=== PATIENT | female | born 1950 | race Caucasian/White ===

== ENCOUNTER 2020-01-22 20:23 | Inpatient (IN) | payer MEDICARE ==
[2020-01-22] MEDS ORDERED: LORazepam 2 MG/ML INJ IV STA ×2 (20:35→22:53)
[2020-01-22] MEDS ORDERED: SODIUM CHLORIDE 0.9% 500 ML 500 ML IV STA (20:35)
[2020-01-22] MEDS ORDERED: methylPREDNISolone SOD SUCCI 125 MG/2 ML VIAL IV STA (20:35)
[2020-01-22] MEDS ORDERED: IPRATROPIUM-ALBUTEROL 3 ML NEB INHALATION STA (20:35)
[2020-01-22] MEDS ORDERED: MAGNESIUM SULFATE-D5W PMX 1 GM in DEXTROSE/WATER 1 100ML.BAG IVPB STA (20:35)
[2020-01-22] MEDS ORDERED: DILTIAZEM DRIP BOLUS FROM BAG 1 MG SOLN IV ONE (20:41)
[2020-01-22 20:50] LABS: Basophils % (A) 0 %; Eosinophils # (A) 0.2 k/uL (0-0.7); Eosinophils % (A) 1 %; HCT 39.8 % (34.0-46.0); HGB 12.3 gm/dL (11.4-16.0); Hypochromasia Slight; Lymphocytes # (A) 1.6 k/uL (1.0-4.8); Lymphocytes % (A) 8 %; MCH 29.4 pg (25.0-35.0); MCHC 30.9 g/dL (31.0-37.0); MCV 95.2 fL (80.0-100.0); Mean Platelet Volume 9.4; Monocytes # (A) 1.2 k/uL (0-1.0); Monocytes % (A) 6 %; Neutrophils # (A) 16.2 k/uL (1.3-7.7); Neutrophils % (A) 84 %; Platelet Count 151 k/uL (150-450); RBC 4.18 m/uL (3.80-5.40); RDW 13.7 % (11.5-15.5); WBC 19.4 k/uL (3.8-10.6)
[2020-01-22 20:51] LABS: VBG PH 7.25 (7.31-7.41)
[2020-01-22] MEDS: DILTIAZEM 125 MG in SODIUM CHLORIDE 0.9% 100 ML IV SCH (20:58)
[2020-01-22 21:07] LABS: Calcium 8.8 mg/dL (8.4-10.2); Potassium 3.6 mmol/L (3.5-5.1); Total Bilirubin 0.6 mg/dL (0.2-1.3); Total Protein 5.9 g/dL (6.3-8.2)
[2020-01-22 21:12] LABS: INR 0.9 (<1.2); Partial Thromboplastin Time 23.5 sec (22.0-30.0); Prothrombin Time 9.8 sec (9.0-12.0)
[2020-01-22 21:18] LABS: D-Dimer 3.38 mg/L FEU (<0.60)
--- NOTE | 2020-01-22 21:36 | XR ---
EXAMINATION TYPE: XR chest 1V portable DATE OF EXAM: 01/22/2020 COMPARISON: 07/19/2011 HISTORY: Short of breath TECHNIQUE: FINDINGS: there is blunting right costophrenic angle. There is patchy infiltrate in the right lower lung extend ing from the right pulmonary hilum. The left lung is clear. There are chest leads. IMPRESSION: Pleural fluid and right pulmonary infiltrate appear new compared to old exam. No heart fa ilure. Follow-up recommended.
[2020-01-22] MEDS ORDERED: AZITHROMYCIN 500 MG in SODIUM CHLORIDE 0.9% 250 ML IVPB STA (21:40)
--- NOTE | 2020-01-22 21:43 | ED ---
SOB HPI - General Chief Complaint: Shortness of Breath Stated Complaint: SOB Time Seen by Provider: 01/22/20 20:23 Source: patient Mode of arrival: wheelchair Limitations: no limitations - History of Present Illness Initial Comments: Patient is a 69-year-old female with past medical history of COPD who presents to the emergency department with reported shortness of breath. She states over the past several weeks that she's gotten more progressively short of breath. She did visit her primary care office on Friday and was given a dose of steroids. Patient was then back in office on with bilateral lower extremity swelling. She was started on Lasix and an echo was ordered for Friday. Patient reports that the shortness of breath continued and got worse last night. She admits to history of COPD and has been using her inhalers at home however has never been hospitalized for breathing. Patient denies a history of congestive heart failure. Does state that she's had a history of irregular heart rhythms however unsure what the rhythm was does not take any anticoagulation. Denies history of PR. No history of DVT or PE. No calf pain. No recent travel. Patient denies any chest pain. Admits palpitations. No fevers or chills. Admits to nonproductive cough but no hemoptysis. No abdominal pain. No changes in her bowel or bladder habits. No other alleviating, precipitating or modifying factors - Related Data Home Medications Medication Instructions Recorded Confirmed Albuterol Sulfate [Ventolin HFA] 2 puff INHALATION RT-QID PRN 01/22/20 01/22/20 Alendronate Sodium [Fosamax] 70 mg PO LOYOLA 01/22/20 01/22/20 Ascorbic Acid [Vitamin C] 1,000 mg PO DAILY 01/22/20 01/22/20 Aspirin 325 mg PO HS 01/22/20 01/22/20 Atorvastatin Calcium [Lipitor] 80 mg PO HS 01/22/20 01/22/20 Celecoxib [CeleBREX] 200 mg PO DAILY 01/22/20 01/22/20 Famotidine 20 mg PO BID PRN 01/22/20 01/22/20 Fluticasone Nasal [place] [Flonase 1 spray EA NOSTRIL DAILY PRN 01/22/20 01/22/20 Nasal [place]] Fluticasone/Vilanterol [Breo 1 inhalation INHALATION RT-HS 01/22/20 01/22/20 Ellipta 200-25 Mcg INH] Furosemide [Lasix] 20 mg PO DAILY 01/22/20 01/22/20 Ibuprofen 800 mg PO BID PRN 01/22/20 01/22/20 Loperamide [Imodium] 2 mg PO QID PRN 01/22/20 01/22/20 Potassium Gluconate 99 mg PO HS 01/22/20 01/22/20 Umeclidinium [place] [Incruse 1 puff INHALATION RT-DAILY 01/22/20 01/22/20 Ellipta] amLODIPine [Norvasc] 10 mg PO DAILY 01/22/20 01/22/20 lisinopriL 40 mg PO DAILY 01/22/20 01/22/20 Allergies Allergy/AdvReac Type Severity Reaction Status Date / Time prednisone Allergy Rash/Hives Verified 01/22/20 21:55 Review of Systems ROS Statement: Those systems with pertinent positive or pertinent negative responses have been documented in the HPI. ROS Other: All systems not noted in ROS Statement are negative. Past Medical History Past Medical History: Atrial Fibrillation, COPD, Hypertension General Exam Limitations: no limitations General appearance: alert, in distress Head exam: Present: atraumatic, normocephalic Eye exam: Present: normal appearance ENT exam: Present: normal exam, mucous membranes moist Neck exam: Present: normal inspection. Absent: tenderness, meningismus, lymphadenopathy Respiratory exam: Present: respiratory distress, wheezes, accessory muscle use, decreased breath sounds, other (tachypnia. ) Cardiovascular Exam: Present: tachycardia, irregular rhythm GI/Abdominal exam: Present: soft, normal bowel sounds. Absent: distended, tenderness, guarding, rebound, rigid Extremities exam: Present: pedal edema (3+ pedal edema bilateral lower extre mities) Neurological exam: Present: alert, oriented X3 Psychiatric exam: Present: anxious Skin exam: Present: warm, dry, intact, normal color. Absent: rash Course Vital Signs 01/22/20 01/22/20 01/22/20 20:27 20:59 21:01 Temperature 98.2 F Pulse Rate 203 H 170 H 170 H Respiratory 42 H 34 H 38 H Rate Blood Pressure 110/92 119/76 94/84 O2 Sat by Pulse 97 97 98 Oximetry 01/22/20 01/22/20 01/22/20 21:04 21:10 21:12 Temperature Pulse Rate 184 H 174 H 168 H Respiratory 38 H 34 H 33 H Rate Blood Pressure 109/87 109/87 109/87 O2 Sat by Pulse 98 98 96 Oximetry 01/22/20 01/22/20 01/22/20 21:23 21:49 21:51 Temperature Pulse Rate 163 H 165 H 165 H Respiratory 36 H 56 H 36 H Rate Blood Pressure 107/67 114/78 O2 Sat by Pulse 98 98 Oximetry 01/22/20 01/22/20 01/22/20 22:00 22:17 22:29 Temperature 98.3 F Pulse Rate 176 H 161 H 149 H Respiratory 37 H 34 H 34 H Rate Blood Pressure 106/84 101/60 134/50 O2 Sat by Pulse 97 98 98 Oximetry 01/22/20 01/22/20 01/22/20 22:30 22:46 23:00 Temperature Pulse Rate 176 H 170 H 161 H Respiratory 73 H 34 H 32 H Rate Blood Pressure 101/60 102/73 102/73 O2 Sat by Pulse 99 97 100 Oximetry 01/22/20 01/22/20 23:32 23:52 Temperature Pulse Rate 144 H Respiratory 34 H Rate Blood Pressure 124/71 O2 Sat by Pulse 96 93 L Oximetry - Reevaluation(s) Reevaluation #1: Discussed case with Dr. George who accepted admission and the ICU 01/22/20 23:34 Reevaluation #2: 01/22/20 23:[address] Vivar who agreed to an esmolol gtt Reevaluation #3: Spoke with Dr. Noel 01/22/20 23:56 Medical Decision Making - Medical Decision Making Upon arrival the patient is promptly placed in the trauma bay 2. A thorough history and physical exam was performed. Patient is extremely tachypneic and therefore respiratory is called and placed the patient on BiPAP. She is hooked up to continuous pulse ox and cardiac monitoring. Patient is tachycardic. 12- lead EKG was performed which demonstrates that the patient is in A. fib with a rate up to 220. Peripheral IV was established. Laboratory studies were conducted. The patient was given a DuoNeb breathing treatment, 1 g of magnesium. Patient is initiated on a Cardizem drip. She is given 10 mg bolus followed by 5 mg per hour. Laboratory studies are remarkable for leukocytosis o f 19.4. D-dimer elevated at 3.38. Creatinine elevated at 1.3. BNP 6030. TSH undetectable with free T4 of 5.09. Chest x-ray does demonstrate pleural fluid and right posterior infiltrate. Because of his blood cultures obtained and the patient was started on Rocephin and azithromycin. Because of the patient's elevated d-dimer she is sent over for CT of her chest which demonstrates a loculated right pleural effusion, patchy airspace pneumonia right lower lobe, mild right bronchial adenopathy. No evidence of pulmonary embolus and. Because the patient's pitting edema I did order lower trauma Doppler's which are positive for DVT in the right lower extremity from proximal femoral vein to pr oximal calf veins. Patient was started on heparin drip at low intensity for afib which was titrated to high intensity because of the newly found DVT. Patient is reevaluated and appears resting comfortably on the BiPAP. I did titrate up her Cardizem to 10 mg and then to 15 mg. Patient continues to have a persistent heart rate in the 140s. Because of the persistent tachycardia did consult cardiology, environmental field team member Dr. Mo and Dr. Noel. Patient will be placed on an esmolol drip in addition to her Cardizem drip. PTU was ordered. Patient wanted to take the BiPAP off therefore we did do a trial. Patient maintained her oxygen saturations however is tachypnic. She was given 1 mg of Ativan and placed back on bipap. Patient understood this. Patient tested for covid and awaiting results. Patient was then transferred to the ICU in critical condition - Lab Data Result diagrams: 01/24/20 05:20 01/24/20 05:20 Lab Results 01/22/20 01/22/20 01/22/20 Range/Units 20:40 20:40 20:40 WBC 19.4 H (3.8-10.6) k/uL RBC 4.18 (3.80-5.40) m/uL Hgb 12.3 (11.4-16.0) gm/dL Hct 39.8 (34.0-46.0) % MCV 95.2 (80.0-100.0) fL MCH 29.4 (25.0-35.0) pg MCHC 30.9 L (31.0-37.0) g/dL RDW 13.7 (11.5-15.5) % Plt Count 151 (150-450) k/uL Neutrophils % 84 % Lymphocytes % 8 % Monocytes % 6 % Eosinophils % 1 % Basophils % 0 % Neutrophils # 16.2 H (1.3-7.7) k/uL Lymphocytes # 1.6 (1.0-4.8) k/uL Monocytes # 1.2 H (0-1.0) k/uL Eosinophils # 0.2 (0-0.7) k/uL Basophils # 0.0 (0-0.2) k/uL Hypochromasia Slight PT 9.8 (9.0-12.0) sec INR 0.9 (<1.2) APTT 23.5 (22.0-30.0) sec D-Dimer 3.38 H (<0.60) mg/L FEU VBG pH (7.31-7.41) VBG pCO2 (37-51) mmHg VBG HCO3 (24-28) mmol/L Sodium 137 (137-145) mmol/L Potassium 3.6 (3.5-5.1) mmol/L Chloride 107 (98-107) mmol/L Carbon Dioxide 17 L (22-30) mmol/L Anion Gap 13 mmol/L BUN 39 H (7-17) mg/dL Creatinine 1.30 H (0.52-1.04) mg/dL Est GFR (CKD-EPI)AfAm 49 (>60 ml/min/1.73 sqM) Est GFR (CKD-EPI)NonAf 42 (>60 ml/min/1.73 sqM) Glucose 173 H (74-99) mg/dL Plasma Lactic Acid Ford (0.7-2.0) mmol/L Calcium 8.8 (8.4-10.2) mg/dL Magnesium 2.0 (1.6-2.3) mg/dL Total Bilirubin 0.6 (0.2-1.3) mg/dL AST 93 H (14-36) U/L ALT 69 H (4-34) U/L Alkaline Phosphatase 257 H (38-126) U/L Troponin I (0.000-0.034) ng/mL NT-Pro-B Natriuret Pep pg/mL Total Protein 5.9 L (6.3-8.2) g/dL Albumin 3.0 L (3.5-5.0) g/dL TSH (0.465-4.680) mIU/L Free T4 (0.78-2.19) ng/dL 01/22/20 01/22/20 01/22/20 Range/Units 20:40 20:40 20:40 WBC (3.8-10.6) k/uL RBC (3.80-5.40) m/uL Hgb (11.4-16.0) gm/dL Hct (34.0-46.0) % MCV (80.0-100.0) fL MCH (25.0-35.0) pg MCHC (31.0-37.0) g/dL RDW (11.5-15.5) % Plt Count (150-450) k/uL Neutrophils % % Lymphocytes % % Monocytes % % Eosinophils % % Basophils % % Neutrophils # (1.3-7.7) k/uL Lymphocytes # (1.0-4.8) k/uL Monocytes # (0-1.0) k/uL Eosinophils # (0-0.7) k/uL Basophils # (0-0.2) k/uL Hypochromasia PT (9.0-12.0) sec INR (<1.2) APTT (22.0-30.0) sec D-Dimer (<0.60) mg/L FEU VBG pH (7.31-7.41) VBG pCO2 (37-51) mmHg VBG HCO3 (24-28) mmol/L Sodium (137-145) mmol/L Potassium (3.5-5.1) mmol/L Chloride (98-107) mmol/L Carbon Dioxide (22-30) mmol/L Anion Gap mmol/L BUN (7-17) mg/dL Creatinine (0.52-1.04) mg/dL Est GFR (CKD-EPI)AfAm (>60 ml/min/1.73 sqM) Est GFR (CKD-EPI)NonAf (>60 ml/min/1.73 sqM) Glucose (74-99) mg/dL Plasma Lactic Acid Ford 2.0 (0.7-2.0) mmol/L Calcium (8.4-10.2) mg/dL Magnesium (1.6-2.3) mg/dL Total Bilirubin (0.2-1.3) mg/dL AST (14-36) U/L ALT (4-34) U/L Alkaline Phosphatase (38-126) U/L Troponin I 0.018 (0.000-0.034) ng/mL NT-Pro-B Natriuret Pep 6030 pg/mL Total Protein (6.3-8.2) g/dL Albumin (3.5-5.0) g/dL TSH (0.465-4.680) mIU/L Free T4 (0.78-2.19) ng/dL 01/22/20 01/22/20 Range/Units 20:40 20:42 WBC (3.8-10.6) k/uL RBC (3.80-5.40) m/uL Hgb (11.4-16.0) gm/dL Hct (34.0-46.0) % MCV (80.0-100.0) fL MCH (25.0-35.0) pg MCHC (31.0-37.0) g/dL RDW (11.5-15.5) % Plt Count (150-450) k/uL Neutrophils % % Lymphocytes % % Monocytes % % Eosinophils % % Basophils % % Neutrophils # (1.3-7.7) k/uL Lymphocytes # (1.0-4.8) k/uL Monocytes # (0-1.0) k/uL Eosinophils # (0-0.7) k/uL Basophils # (0-0.2) k/uL Hypochromasia PT (9.0-12.0) sec INR (<1.2) APTT (22.0-30.0) sec D-Dimer (<0.60) mg/L FEU VBG pH 7.25 L (7.31-7.41) VBG pCO2 41 (37-51) mmHg VBG HCO3 17 L (24-28) mmol/L Sodium (137-145) mmol/L Potassium (3.5-5.1) mmol/L Chloride (98-107) mmol/L Carbon Dioxide (22-30) mmol/L Anion Gap mmol/L BUN (7-17) mg/dL Creatinine (0.52-1.04) mg/dL Est GFR (CKD-EPI)AfAm (>60 ml/min/1.73 sqM) Est GFR (CKD-EPI)NonAf (>60 ml/min/1.73 sqM) Glucose (74-99) mg/dL Plasma Lactic Acid Ford (0.7-2.0) mmol/L Calcium (8.4-10.2) mg/dL Magnesium (1.6-2.3) mg/dL Total Bilirubin (0.2-1.3) mg/dL AST (14-36) U/L ALT (4-34) U/L Alkaline Phosphatase (38-126) U/L Troponin I (0.000-0.034) ng/mL NT-Pro-B Natriuret Pep pg/mL Total Protein (6.3-8.2) g/dL Albumin (3.5-5.0) g/dL TSH <0.015 L (0.465-4.680) mIU/L Free T4 5.09 H (0.78-2.19) ng/dL - EKG Data EKG Comments: EKG demonstrates age or fibrillation with a rapid ventricular response. Rate of 194. QRS 86. QTC of 46. No acute ST segment elevations or depressions. Critical Care Time Critical Care Time: 50 minutes for initiation of bipap, attempted weaning with re-initiation of bipap. Initiation and titration of patients cardizem gtt for new onset afib. Initiation of esmolol gtt for suspected thyroid storm with afib rvr. Initiation and titration of heparin gtt for afib and lower extremity dvt. Disposition Clinical Impression: Atrial fibrillation with RVR, CAP (community acquired pneumonia), BiPAP (biphasic positive airway pressure) dependence, Lower leg DVT (deep venous thromboembolism), acute, Elevated serum free T4 level, Hypoxia, Leukocytosis Disposition: ADMITTED IP TO THIS HOSP Condition: Critical Is patient prescribed a controlled substance at d/c from ED?: No Decision to Admit Reason: Admit from EC Decision Date: 01/22/20 Decision Time: 22:12
--- NOTE | 2020-01-22 22:01 | CT ---
EXAMINATION TYPE: CT chest angio for PE DATE OF EXAM: 01/22/2020 COMPARISON: HISTORY: SOB CT DLP: 388.5 mGycm Automated exposure control for dose reduction was used. CONTRAST: Performed with IV Contrast, patient injected with 80 mL of Isovue 370. There are 3-D post processed images. There is a moderate right pleural effusion. Heart is slightly enlarged. There is no pericardial effus ion. There is patchy airspace consolidation in the posterior right lower lobe. There is some fluid in the right major fissure. I see no definite filling defect in the pulmonary arteries. There is no mediastinal adenopathy. Thora cic aorta is atheromatous. There is no aneurysm or dissection. Ascending aorta measures 3.4 cm. The l eft lung is clear of consolidation. There is a 7 mm nodular density in the lingula left upper lobe. T here are some right bronchial lymph nodes that measure up to 1.5 cm. There is some compression deformity of T9 and T8 vertebra up to 60%. IMPRESSION: There is some loculated right pleural effusion. Patchy airspace pneumonia right lower lobe. Mild righ t bronchial adenopathy probably due to inflammatory process. No evidence of pulmonary embolism. Cardiomegaly. Atherosclerotic vascular disease.
[2020-01-22] MEDS ORDERED: SODIUM CHLORIDE 0.9% 1,000 ML IV ONE (22:07)
--- NOTE | 2020-01-22 22:19 | US ---
EXAMINATION TYPE: US venous doppler duplex LE DATE OF EXAM: 01/22/2020 8:41 PM COMPARISON: NONE CLINICAL HISTORY: swelling. SOB SIDE PERFORMED: Bilateral TECHNIQUE: The lower extremity deep venous system is examined utilizing real time linear array sonog eliecer with graded compression, doppler sonography and color-flow sonography. VESSELS IMAGED: External Iliac Vein (EIV) Common Femoral Vein Deep Femoral Vein Greater Saphenous Vein * Femoral Vein Popliteal Vein Small Saphenous Vein * Proximal Calf Veins (* superficial vessels) Right Leg: Positive for DVT right proximal femoral vein to proximal calf veins Left Leg: Negative for DVT IMPRESSION: There is evidence of acute deep vein thrombosis in the right leg involving the femoral and popliteal vein.
[2020-01-22] MEDS ORDERED: HEPARIN SODIUM,PORCINE 5,000 UNIT/ML 1 ML VIAL IV ONE (22:22)
[2020-01-22] MEDS ORDERED: HEPARIN SODIUM,PORCINE 5,000 UNIT/ML 1 ML VIAL IV PRN (22:22)
[2020-01-22] MEDS ORDERED: HEPARIN SODIUM,PORCINE 10,000 UNIT/ML 1 ML VIAL IV ONE (22:29)
[2020-01-22] MEDS ORDERED: HEPARIN SOD,PORK IN 0.45% NACL 25,000 UNIT in 0.45% NACL 1 250ML.BAG IV SCH (22:30)
[2020-01-22] MEDS: HEPARIN SOD,PORK IN 0.45% NACL 25,000 UNIT in 0.45% NACL 1 250ML.BAG IV SCH (22:43)
[2020-01-22] MEDS ORDERED: IPRATROPIUM-ALBUTEROL 3 ML NEB INHALATION PRN (22:57)
[2020-01-22] MEDS ORDERED: NALOXONE 0.4 MG/ML 1 ML VIAL IV PRN (22:57)
[2020-01-22 23:05] LABS: T4, Free (Free Thyroxine) 5.09 ng/dL (0.78-2.19)
[2020-01-22] MEDS ORDERED: propylthiouraciL 50 MG TAB PO STA (23:38)
[2020-01-22 23:55] LABS: Glucose,Whole Blood 169 mg/dL (75-99)
[2020-01-23] MEDS ORDERED: IPRATROPIUM-ALBUTEROL 3 ML NEB INHALATION PRN (00:23)
[2020-01-23] MEDS ORDERED: FLUTICASONE 50MCG/SPRAY NASAL 16GM EA NOSTRIL PRN (00:26)
[2020-01-23] MEDS ORDERED: LOPERAMIDE 2 MG CAP PO PRN (00:26)
[2020-01-23] MEDS: BUDESONIDE 1 MG/2 ML NEBU INHALATION SCH ×3 (00:30→19:10)
[2020-01-23] MEDS: FORMOTEROL FUMARATE 20 MCG/2 ML NEBU INHALATION SCH ×2 (00:30→07:22)
[2020-01-23] MEDS: ESMOLOL IN SODIUM CHLORIDE PMX 2.5 GM in SALINE 1 250ML.BAG IV SCH ×2 (00:43→11:47)
[2020-01-23] MEDS ORDERED: SODIUM CHLORIDE 0.9% 1,000 ML IV SCH (01:00)
[2020-01-23] MEDS ORDERED: propofoL 100 ML IV ONE (01:05)
--- NOTE | 2020-01-23 01:56 | XR ---
EXAMINATION TYPE: XR chest 1V portable DATE OF EXAM: 01/23/2020 COMPARISON: Yesterday HISTORY: Short of breath TECHNIQUE: Single view FINDINGS: Endotracheal tube is 10 mm from the sonya. There is patchy airspace consolidation in the r ight lower lobe. There is bilateral pleural effusions larger on the right side. There is no gross hea rt failure. Thoracic aorta is atheromatous. There is nasogastric tube in the stomach. IMPRESSION: Endotracheal tube is low and should BE pulled back 3 cm. There is infiltrate and pleural fluid on the right side that is the same or slightly worse than exam 4 hours ago.
[2020-01-23 03:36] LABS: Glucose,Whole Blood 167 mg/dL (75-99)
[2020-01-23] MEDS: IPRATROPIUM-ALBUTEROL 3 ML NEB INHALATION SCH ×5 (03:50→19:10)
[2020-01-23] MEDS ORDERED: propylthiouraciL 50 MG TAB PO SCH (04:00)
[2020-01-23] MEDS: DILTIAZEM 125 MG in SODIUM CHLORIDE 0.9% 100 ML IV SCH ×2 (04:58→18:36)
[2020-01-23 05:28] LABS: Glucose,Whole Blood 167 mg/dL (75-99)
[2020-01-23 05:34] LABS: HCT 40.4 % (34.0-46.0); HGB 11.8 gm/dL (11.4-16.0); Hypochromasia Marked; MCH 30.3 pg (25.0-35.0); MCHC 29.3 g/dL (31.0-37.0); Macrocytosis Slight; Mean Platelet Volume 9.3; Platelet Count 146 k/uL (150-450); RDW 13.3 % (11.5-15.5); WBC 19.2 k/uL (3.8-10.6)
[2020-01-23 05:43] LABS: Albumin 2.6 g/dL (3.5-5.0); Calcium 7.4 mg/dL (8.4-10.2); Potassium 4.6 mmol/L (3.5-5.1); Total Bilirubin 0.7 mg/dL (0.2-1.3); Total Protein 5.5 g/dL (6.3-8.2)
[2020-01-23 05:58] LABS: C Reactive Protein 251.6 mg/L (<10.0)
[2020-01-23 06:02] LABS: INR 1.1 (<1.2); Prothrombin Time 11.5 sec (9.0-12.0)
[2020-01-23 06:05] LABS: Band Neutrophils % 2 %; Crenated RBC Present; Lymphocytes # (M) 0.77 k/uL (1.0-4.8); Monocytes # (M) 0.96 k/uL (0-1.0); Neutrophils % (M) 89 %; Nucleated Red Blood Cells 0 /100 WBC (0-0); Total Cells Counted 100
[2020-01-23 06:08] LABS: Partial Thromboplastin Time >200.0 sec (22.0-30.0)
--- NOTE | 2020-01-23 06:50 | XR ---
EXAMINATION TYPE: XR chest 1V DATE OF EXAM: 01/23/2020 COMPARISON: Today HISTORY: Short of breath TECHNIQUE: FINDINGS: There is blunting of the costophrenic angles. There is endotracheal tube 1.5 cm from the ca luh. There is nasogastric there is no gross heart failure. There is bilateral lower lobe pulmonary i nfiltrates and atelectasis. IMPRESSION: Bilateral pleural effusions with lower lobe pneumonia and atelectasis unchanged or slight ly worse compared to exam 5 hours ago. No obvious heart failure.
[2020-01-23] MEDS: INSULIN ASPART (NovoLOG) 100 UNIT/ML VIAL SQ SCH ×3 (06:52→20:22)
[2020-01-23] MEDS ORDERED: SODIUM CHLORIDE 0.9% 500 ML 500 ML IV ONE ×2 (07:00→10:27)
[2020-01-23] MEDS ORDERED: FUROSEMIDE 10 MG/ML 4 ML VIAL IV STA (07:07)
[2020-01-23 07:29] LABS: ABG Base Excess -19.1 mmol/L; ABG HCO3 14 mmol/L (21-25); ABG PO2 129 mmHg (83-108); ABG TCO2 17 mmol/L (19-24); Allen Test Performed? Yes
[2020-01-23 07:31] LABS: MCV 103.5 fL (80.0-100.0)
[2020-01-23 07:33] LABS: ABG PCO2 77 mmHg (35-45); ABG PH 6.87 (7.35-7.45)
[2020-01-23] MEDS ORDERED: SODIUM BICARB 8.4% 50 ML SYR (1 MEQ/ML) IV STA ×3 (07:56→22:35)
--- NOTE | 2020-01-23 08:04 | HP ---
HISTORY AND PHYSICAL I am covering for Dr. Arreola. CHIEF COMPLAINT: Shortness of breath. HISTORY OF PRESENT ILLNESS: This 69-year-old woman with a past medical history of atrial fibrillation, COPD, hypertension, being followed by [facility] was having shortness of breath over the past several days. Because of the lack of improvement with outpatient treatment, the patient was taken to [facility] admitted for evaluation and treatment. The patient was extremely short of breath. The patient has to put on a nonrebreather mask to maintain the saturation. The patient also had atrial fibrillation with rate of about more than 200. The patient was given max dose Cardizem drip with no relief. Amiodarone was withheld because of the possibility of hypothyroidism and thyroid storm. The patient also had elevated D-dimer. The patient also had acute DVT of the right proximal femoral vein proximal to calf veins. The patient also had a CT of the chest which showed no evidence of pulmonary embolism, but loculated right pleural effusion as well as patchy airspace disease in the right lower lobe also. Mild right bronchial adenopathy was also noted. The possibility of viral pneumonia and for COVID pneumonia is also being considered. COVID-19 test has been requested. The patient was transferred to [facility] and closely monitored. Because of the nonrebreather mask and the patient is unable to give a coherent history, most of the history is taken with my discussion with staff and discussion with the ER physician and review of chart at this time. PAST MEDICAL HISTORY: History of atrial ablation, COPD, hypertension. HOME MEDICATIONS: 1. Vitamin C 1000 mg daily. 2. Potassium gluconate 99 mg q.h.s. 3. Flonase 1 spray daily p.r.n. 4. Pepcid 20 mg b.i.d. p.r.n. 5. Imodium. 6. Ibuprofen. 7. Lisinopril. 8. Aspirin. 9. Albuterol. 10.Lasix. 11.Celebrex. 12.Breo. 13.Ellipta. 14.Lipitor. 15.Norvasc. 16.Fosamax. ALLERGIES: PREDNISONE. Family history, social history and review of systems could not be taken because of above mentioned reasons. PHYSICAL EXAMINATION: The patient is alert, oriented x2. Pulse is 160, irregular, irregular; blood pressure 100/84, respiration 34, temperature normal, pulse ox 96% on 40% Ventimask. HEENT: Conjunctivae normal. Oral mucosa moist. NECK: No jugular venous distention. No lymph node enlargement. CARDIOVASCULAR: S1, S2, muffled. No S3, no S4, RESPIRATORY: Diminished breath sounds at the bases. A few scattered rhonchi and crackles. ABDOMEN: Soft, nontender. No mass palpable. LEGS: No edema, no swelling. NERVOUS SYSTEM: Higher functions mentioned earlier. Moves all four limbs. No focal motor or sensory deficits. LYMPHATICS: No lymph node in neck or axilla. SKIN: No rash. JOINTS: No active deforming arthropathy. LABS: WBC 19.2, hemoglobin 12.3, D-dimer 3.380. ABG- CBG 7.25. Creatinine is 1.30, glucose 173 and AST is 93, ALT 69, alkaline phosphatase is 257, albumin is 3. TSH less than 0.015, free T4 is 5.09. ASSESSMENT: 1. Chronic obstructive pulmonary disease acute exacerbation with acute right lower lobe pneumonia, possibly gram-negative with acute hypoxic respiratory failure. 2. Change in mental status, acute metabolic encephalopathy secondary to respiratory failure. 3. Possible bilateral interstitial pneumonia and COVID-19 pneumonia. 4. Acute right leg deep venous thrombosis. afib with FVR refractory 5. Elevated D-dimer. 6. Increased WBC. 7. Elevated creatinine with possible acute renal failure. 8. Elevated AST, ALT. 9. Possible hyperthyroidism, new onset. 10.History of atrial fibrillation. 11.History of chronic obstructive pulmonary disease. 12.History of hypertension. 13.FULL CODE. RECOMMENDATIONS AND DISCUSSION: In this 69-year-old woman who presented with multiple complex medical issues, we will monitor the patient closely, continue the current management of the patient and symptomatic treatment. The patient is being closely monitored in the ICU. We will initiate broad-spectrum IV antibiotics. Otherwise, we will recommend cardiology and pulmonology consultations. Esmolol drip is being initiated. COVID-19 test is pending at this time. Otherwise, cultures also requested. Will repeat the labs tomorrow. I would also recommend infectious disease evaluation by Dr. Vasquez also. Overall prognosis extremely guarded. Ensure oxygenation. The heart rate is also slightly improving and also the patient is on Ventimask at this time. Further recommendations to follow. Dr. Arreola will follow the patient on Friday. MMODL / IJN: [id number] / ANTIONE
[2020-01-23] MEDS ORDERED: ROCURONIUM BROMIDE 10 MG/ML 5 ML VIAL IV ONE (08:10)
[2020-01-23] MEDS ORDERED: PROPOFOL 10 MG/ML 20 ML VIAL IV ONE (08:10)
[2020-01-23] MEDS ORDERED: MIDAZOLAM 1 MG/ML 5 ML VIAL ONE (08:10)
[2020-01-23] MEDS ORDERED: PROTAMINE SULFATE 10 MG/ML 5 ML VIAL IV STA (08:12)
[2020-01-23] MEDS: DEXTROSE 5% IN WATER 1,000 ML with SODIUM BICARB (1 MEQ/ML) 150 ML IV SCH (08:36)
--- NOTE | 2020-01-23 08:39 | US ---
EXAMINATION TYPE: US chest DATE OF EXAM: 01/23/2020 COMPARISON: Radiograph same day CLINICAL HISTORY: 61-year-old female Markings for thoracentesis by pulmonary staff. Right pleural eff usion TECHNIQUE: Targeted ultrasound of the posterior bilateral chest FINDINGS: EXAM MEASUREMENTS: Right Pleural Effusion pocket size: 5.7 cm; however, echogenic lung noted within fluid pocket Right skin surface to fluid distance: 2.4 cm Left Pleural Effusion pocket size: no fluid seen Right side was marked for possible thoracentesis outside the dept. Pulmonologists are able to review the images in the patient?s EMR. IMPRESSIONS: 1. Mild to moderate right effusion with marking performed. Note interposed atelectatic lung within th e fluid. 2. No sizable effusion seen on the left.
[2020-01-23 08:55] LABS: ABG Base Excess -12.9 mmol/L; ABG HCO3 17 mmol/L (21-25); ABG Oxygen Saturation 95.1 % (94-97); ABG PCO2 60 mmHg (35-45); ABG PO2 92 mmHg (83-108); ABG TCO2 19 mmol/L (19-24)
[2020-01-23] MEDS ORDERED: NOREPINEPHRINE 4 MG in SODIUM CHLORIDE 0.9% 250 ML IV SCH (09:00)
[2020-01-23] MEDS ORDERED: FUROSEMIDE 20 MG TAB PO SCH (09:00)
[2020-01-23 10:15] LABS: ABG Base Excess -13.1 mmol/L; ABG HCO3 16 mmol/L (21-25); ABG Oxygen Saturation 94.4 % (94-97); ABG PCO2 49 mmHg (35-45); ABG PO2 81 mmHg (83-108); ABG TCO2 18 mmol/L (19-24)
[2020-01-23 10:17] LABS: ABG PH 7.07 (7.35-7.45)
[2020-01-23] MEDS ORDERED: SODIUM BICARB 8.4% 50 ML SYR (1 MEQ/ML) ONE (10:25)
[2020-01-23 10:30] LABS: ABG PH 7.13 (7.35-7.45)
[2020-01-23] MEDS: SODIUM CHLORIDE 0.9% 1,000 ML IV SCH (10:36)
[2020-01-23] MEDS: PANTOPRAZOLE 40 MG/10 ML VIAL IVP SCH (10:37)
[2020-01-23] MEDS: ASCORBIC ACID 500 MG TAB PO SCH (10:37)
[2020-01-23] MEDS: CHLORHEXIDINE GLUCONATE 15 ML CUP MUCOUS MEM SCH ×2 (10:46→20:47)
[2020-01-23] MEDS: methIMAzole 5 MG TAB PO SCH ×3 (10:47→22:52)
--- NOTE | 2020-01-23 10:48 | XR ---
EXAMINATION TYPE: XR chest 1V confirm line [facility] DATE OF EXAM: 01/23/2020 COMPARISON: 01/23/2020, earlier today HISTORY: 69-year-old female verified line placement TECHNIQUE: Single frontal view of the chest is obtained. FINDINGS: Right IJ CVC tip in the inferior right atrium likely near the inferior cavoatrial junction. Heart is mildly enlarged. Continued small to moderate right effusion with extensive patchy right mid and lower lung opacity. Patchy left basilar opacity also noted. The previous blunting of the costophrenic angl e is improved. ET tube has been satisfactorily repositioned now measuring 3.6 cm from the sonya. NG tube courses below the diaphragm. IMPRESSION: 1. Right IJ CVC tip in the inferior right atrium. 2. Continued small to moderate right effusion with prominent patchy right mid and lower lung consolid ation. 3. Some mild patchy left basilar infiltrate. The previous blunting of the left costophrenic angle is improved.
--- NOTE | 2020-01-23 11:11 | CONS ---
CONSULTATION Mrs. Glynn is a 69-year-old female with a history of hypertension, hyperlipidemia, who presented to the emergency room with evidence of progressive dyspnea and evidence of atrial fibrillation with rapid ventricular response. The patient, according to the records, has a history of chronic obstructive lung disease. In the emergency room, she was noted to have atrial fibrillation, was given IV Cardizem and subsequently esmolol. She has converted to sinus mechanism. She was diagnosed with a right DVT and has been on heparin. No other history could be obtained, the patient is intubated and there are no old records. The patient had lab data consistent with severe hyperthyroidism and possible Graves disease. She is hypotensive at this time. has no significant urinary output. She continues to be acidotic with elevated pCO2. Her chest x-ray on presentation revealed an infiltrate in the right lobe with worsening at this moment. MEDICATION: His medications prior to admission included lisinopril 40 mg daily, aspirin, furosemide 20 mg daily, Lipitor 80 mg daily, amlodipine 10 mg daily. REVIEW OF SYSTEMS: Could not be obtained. PHYSICAL EXAMINATION: 69-year-old female, intubated and nonresponsive, sedated. Blood pressure running in the 90s to 100 with a heart rate in the 90s at this time. She is in sinus mechanism. She was very tachycardiac on presentation. HEAD: Normocephalic. Eyes sclerae nonicteric suggestion of Grave's disease. NECK no bruit. LUNGS: Clear to auscultation anteriorly. HEART: Regular rate and rhythm S1, S2. No S3 with systolic ejection murmur 2/6 at the base. No diastolic murmur. ABDOMEN: Soft, positive bowel sounds. No organomegaly. EXTREMITIES +1 to 2 edema on the right side, +1 on the left side. LAB DATA: Revealed on presentation, white blood cell of 19.4. Her D-dimer was 3.38. BUN and creatinine 39 and 1.30. Her initial troponin 0.018. Her NT proBNP 6040. TSH was less than 0.015 and free T4 of 5.09. Her initial AST is 93 and 69. This morning her AST is 523, ALT 264. Her BUN and creatinine 39 and 1.72. PA 6.87, pCO2 of 77, PO2 of 129, hemoglobin of 11.8, white blood cell of 9.2. Her EKG on presentation revealed atrial fibrillation with rapid ventricular response, rare PACs and nonspecific ST wave changes. Duplex scan revealed a DVT in the right proximal vein to proximal vein. CT angiogram of the chest revealed loculated right pleural effusion with pneumonia in the right lower lobe. No evidence of pulmonary embolism. IMPRESSION: 1. Respiratory failure with evidence of pneumonia. 2. Right femoral deep vein thrombosis. 3. Atrial fibrillation, back in sinus mechanism. 4. Renal failure, worsening. 5. Shock liver. 6. Hypothyroidism with possible Grave's disease. 7. History of hypertension. 8. History of hyperlipidemia. RECOMMENDATION: From the cardiac standpoint, I will obtain an echocardiogram with Doppler. The patient is on IV heparin. I will stop the IV Cardizem at this time since she is in sinus mechanism. Her blood pressure is on the low side. She is off her IV esmolol. She will be started on treatment for her hypothyroidism. She will be evaluated by Dr. Mo regarding her lung status. The prognosis is poor. Thank you for this consult. Will follow with you. MIOL / IJN: [id number] /
[2020-01-23 11:32] LABS: Glucose,Whole Blood 121 mg/dL (75-99)
--- NOTE | 2020-01-23 11:56 | P.CNPUL ---
History of Present Illness Consult date: 01/23/20 Reason for consult: other (Acute hypoxic respiratory failure, acute thyroid storm.) Chief complaint: Shortness of breath and palpitations. History of present illness: This is a 69-year-old female, known history of hypertension, dyslipidemia, possible COPD, patient presented to the ER last night with a few days' history of progressive dyspnea. Upon evaluation in the ER, patient was noted to be in atrial fibrillation with RVR. Further workup included workup for pulmonary embolism, patient was found to have right lower lobe pneumonia and possibly a right-sided pleural effusion no evidence of pulmonary embolism. However considering her d-dimer was elevated patient had ultrasound of the leg and she was found to have right-sided DVT. Patient was also found to have significantly elevated T4 and non-detectable TSH consistent with hyperthyroidism. Patient was placed by the ER physician on Cardizem and esmolo. She was also placed on heparin for atrial fibrillation and RVR. And she was transferred to the ICU. However as soon as the patient arrived to the ICU, I was called by the nurse that the patient is extremely tachypneic, and her respiratory rate was in the 40s. Then I recommended immediate intubation of the patient. And she was placed on ventilatory support. ABG this morning showed a pO2 of 129 pCO2 of 77 pH of 6.87. Her ventilator settings were changed, patient received sodium bicarb and she also received a sodium bicarb drip. Follow-up ABG this morning while I was rounding on the patient showed a pO2 of 81 pCO2 of 49 pH of 7.13. Patient remained on sodium bicarb drip, and her ventilator settings were also adjusted to improve her hypercapnia. Patient converted to sinus rhythm last night after intubation. And her blood pressure was low hence she was placed on norepinephrine. She is now on norepinephrine at 0.05 mcg/kg/m. She is on assist control rate of 28 tidal volume is 470 FiO2 is 50% and PEEP of 5. Patient is on a bicarb drip, and earlier today she developed nasal bleeding with PTT was over 200 hence I recommended holding the heparin, I was about to give the patient protamine sulfate, but her heparin hold seem to take care of the epistaxis. Did not end up giving protamine sulfate. After evaluating the patient in the ICU, I recommended placement of a right IJ central line which was done shortly after I saw the patient, and The patient on norepinephrine. I also recommended an arterial line/right radial arterial line was placed. And I have noted that the patient developed significant elevation of her liver enzymes and renal functioning, hence I recommended switching propylthiouracil to Tapazole at 5 mg via orogastric tube 3 times a day. Fluid boluses were given. And the patient was placed empirically on antibiotics for presumptive right lower lobe community-acquired pneumonia, with small parapneumonic effusion, and possible sepsis. Clearly the patient presented with hyperthyroidism, atrial fibrillation with RVR, right lower lobe pneumonia and right-sided parapneumonic effusion, shock liver, and acute kidney injury with hypotension possibly secondary to sepsis and septic shock. Review of Systems ROS unobtainable: due to endotracheal tube Past Medical History Past Medical History: Atrial Fibrillation, COPD, Hypertension History of Any Multi-Drug Resistant Organisms: None Reported Past Surgical History: Unable to Obtain Past Anesthesia/Blood Transfusion Reactions: Unable to Obtain Past Psychological History: No Psychological Hx Reported Smoking Status: Former smoker Past Drug Use History: None Reported Medications and Allergies Home Medications Medication Instructions Recorded Confirmed Type Albuterol Sulfate [Ventolin HFA] 2 puff INHALATION RT-QID PRN 01/22/20 01/22/20 History Alendronate Sodium [Fosamax] 70 mg PO LOYOLA 01/22/20 01/22/20 History Ascorbic Acid [Vitamin C] 1,000 mg PO DAILY 01/22/20 01/22/20 History Aspirin 325 mg PO HS 01/22/20 01/22/20 History Atorvastatin Calcium [Lipitor] 80 mg PO HS 01/22/20 01/22/20 History Celecoxib [CeleBREX] 200 mg PO DAILY 01/22/20 01/22/20 History Famotidine 20 mg PO BID PRN 01/22/20 01/22/20 History Fluticasone Nasal [place] [Flonase 1 spray EA NOSTRIL DAILY PRN 01/22/20 01/22/20 History Nasal [place]] Fluticasone/Vilanterol [Breo 1 inhalation INHALATION RT-HS 01/22/20 01/22/20 History Ellipta 200-25 Mcg INH] Furosemide [Lasix] 20 mg PO DAILY 01/22/20 01/22/20 History Ibuprofen 800 mg PO BID PRN 01/22/20 01/22/20 History Loperamide [Imodium] 2 mg PO QID PRN 01/22/20 01/22/20 History Potassium Gluconate 99 mg PO HS 01/22/20 01/22/20 History Umeclidinium [place] [Incruse 1 puff INHALATION RT-DAILY 01/22/20 01/22/20 History Ellipta] amLODIPine [Norvasc] 10 mg PO DAILY 01/22/20 01/22/20 History lisinopriL 40 mg PO DAILY 01/22/20 01/22/20 History Allergies Allergy/AdvReac Type Severity Reaction Status Date / Time prednisone Allergy Rash/Hives Verified 01/22/20 21:55 Physical Exam Vitals: Vital Signs Temp Pulse Resp BP Pulse Ox 01/23/20 11:16 90 01/23/20 11:02 94 01/23/20 07:36 94 01/23/20 07:22 92 01/23/20 07:00 92 20 93/54 97 01/23/20 06:30 94 20 91/60 97 01/23/20 06:00 95 20 98/56 97 01/23/20 05:30 95 20 103/63 97 01/23/20 05:00 95 20 107/61 97 01/23/20 04:30 94 20 90/59 97 01/23/20 04:05 90 01/23/20 04:00 97.8 F 77 20 93/65 97 01/23/20 03:50 76 01/23/20 03:30 77 20 94/67 97 01/23/20 03:00 101 H 20 113/74 96 01/23/20 02:30 112 H 20 99/81 97 01/23/20 02:00 76 20 77/61 95 01/23/20 01:30 90 20 127/110 96 01/23/20 01:00 46 H 116/78 88 L 01/23/20 00:30 165 H 46 H 91/74 95 01/23/20 00:00 97.5 F L 151 H 46 H 89/68 95 01/22/20 23:52 93 L 01/22/20 23:32 144 H 34 H 124/71 96 01/22/20 23:00 161 H 32 H 102/73 100 01/22/20 22:46 170 H 34 H 102/73 97 01/22/20 22:30 176 H 73 H 101/60 99 01/22/20 22:29 98.3 F 149 H 34 H 134/50 98 01/22/20 22:17 161 H 34 H 101/60 98 01/22/20 22:00 176 H 37 H 106/84 97 01/22/20 21:51 165 H 36 H 114/78 98 01/22/20 21:49 165 H 56 H 01/22/20 21:23 163 H 36 H 107/67 98 01/22/20 21:12 168 H 33 H 109/87 96 01/22/20 21:10 174 H 34 H 109/87 98 01/22/20 21:04 184 H 38 H 109/87 98 01/22/20 21:01 170 H 38 H 94/84 98 01/22/20 20:59 170 H 34 H 119/76 97 01/22/20 20:27 98.2 F 203 H 42 H 110/92 97 Intake and Output 01/22/20 01/23/20 01/23/20 22:59 06:59 14:59 Intake Total 630.25 154.151 Output Total 85 0 Balance 545.25 154.151 Intake: IV 550 100 Sodium Chloride 0.9% 1, 550 100 000 ml @ 100 mls/hr IV . Q10H [facility] Rx#:[id number] Intake, IV Titration 80.25 54.151 Amount Diltiazem 125 mg In 80.25 Sodium Chloride 0.9% 100 ml @ 15 MG/HR 15 mls/hr IV .Q8H20M [facility] Rx#: [id number] Norepinephrine 4 mg In 54.151 Sodium Chloride 0.9% 250 ml @ 0.05 MCG/KG/MIN 13. 945 mls/hr IV .[id number] [facility] Rx#:[id number] Output: Urine 85 0 Other: Voiding Method Indwelling Catheter Weight 69.4 kg 73.2 kg Physical Exam: Revealed a 69-year-old female, intubated, mechanically ventilated, sedated on propofol, in no distress. Head: Atraumatic, normocephalic. Endotracheal tube and orogastric tube are intact. HEENT: Prominence of orbits, consistent with Graves' disease. PERRLA, EOMI, no icterus, no neck masses, no JVD. Chest: [Symmetrical chest expansion, crackles at the bases, no rhonchi and no wheezes. Cardiac Exam: [Tachycardic, normal S1 and S2, no S3 gallop, 2/6 systolic murmur at the left lower sternal border. Abdomen: [Soft, nontender, no megaly, no rebound, no guarding, normal bowel sounds.] Extremities: [No clubbing, 1+ bipedal edema, right lower extremity seems to be a bit more swollen than the left lower extremity. no cyanosis.] Neurological Exam: Could not be assessed, patient is sedated on propofol. Psychiatric: Could not be assessed. Patient is on propofol and she is mechanically ventilated. Results - Laboratory Findings CBC and BMP: 01/23/20 05:07 01/23/20 05:07 ABG ABG pH 7.13 (7.35-7.45) L* 01/23/20 10:10 ABG pCO2 49 mmHg (35-45) H 01/23/20 10:10 ABG pO2 81 mmHg (83-108) L 01/23/20 10:10 ABG O2 Saturation 94.4 % (94-97) 01/23/20 10:10 PT/INR, D-dimer PT 11.5 sec (9.0-12.0) 01/23/20 05:07 INR 1.1 (<1.2) 01/23/20 05:07 D-Dimer 6.50 mg/L FEU (<0.60) H 01/23/20 05:07 Abnormal lab findings: Abnormal Labs 01/22/20 01/22/20 01/22/20 20:40 20:40 20:40 WBC 19.4 H MCV MCHC 30.9 L Plt Count Neutrophils # 16.2 H Neutrophils # (Manual) Lymphocytes # (Manual) Monocytes # 1.2 H APTT D-Dimer 3.38 H ABG pH ABG pCO2 ABG pO2 ABG HCO3 ABG Total CO2 VBG pH VBG HCO3 Sodium Chloride Carbon Dioxide 17 L BUN 39 H Creatinine 1.30 H Glucose 173 H POC Glucose (mg/dL) Calcium AST 93 H ALT 69 H Alkaline Phosphatase 257 H Lactate Dehydrogenase C-Reactive Protein Total Protein 5.9 L Albumin 3.0 L TSH Free T4 01/22/20 01/22/20 01/22/20 20:40 20:42 23:54 WBC MCV MCHC Plt Count Neutrophils # Neutrophils # (Manual) Lymphocytes # (Manual) Monocytes # APTT D-Dimer ABG pH ABG pCO2 ABG pO2 ABG HCO3 ABG Total CO2 VBG pH 7.25 L VBG HCO3 17 L Sodium Chloride Carbon Dioxide BUN Creatinine Glucose POC Glucose (mg/dL) 169 H Calcium AST ALT Alkaline Phosphatase Lactate Dehydrogenase C-Reactive Protein Total Protein Albumin TSH <0.015 L Free T4 5.09 H 01/23/20 01/23/20 01/23/20 03:34 05:07 05:07 WBC 19.2 H MCV 103.5 H D MCHC 29.3 L Plt Count 146 L Neutrophils # Neutrophils # (Manual) 17.40 H Lymphocytes # (Manual) 0.77 L Monocytes # APTT >200.0 H* D-Dimer 6.50 H ABG pH ABG pCO2 ABG pO2 ABG HCO3 ABG Total CO2 VBG pH VBG HCO3 Sodium Chloride Carbon Dioxide BUN Creatinine Glucose POC Glucose (mg/dL) 167 H Calcium AST ALT Alkaline Phosphatase Lactate Dehydrogenase C-Reactive Protein Total Protein Albumin TSH Free T4 01/23/20 01/23/20 01/23/20 05:07 05:26 07:20 WBC MCV MCHC Plt Count Neutrophils # Neutrophils # (Manual) Lymphocytes # (Manual) Monocytes # APTT D-Dimer ABG pH 6.87 L* ABG pCO2 77 H* ABG pO2 129 H ABG HCO3 14 L ABG Total CO2 17 L VBG pH VBG HCO3 Sodium 136 L Chloride 113 H Carbon Dioxide 14 L BUN 39 H Creatinine 1.72 H Glucose 143 H POC Glucose (mg/dL) 167 H Calcium 7.4 L AST 523 H ALT 264 H Alkaline Phosphatase 247 H Lactate Dehydrogenase 2400 H C-Reactive Protein 251.6 H Total Protein 5.5 L Albumin 2.6 L TSH Free T4 01/23/20 01/23/20 01/23/20 08:48 10:10 11:31 WBC MCV MCHC Plt Count Neutrophils # Neutrophils # (Manual) Lymphocytes # (Manual) Monocytes # APTT D-Dimer ABG pH 7.07 L* 7.13 L* ABG pCO2 60 H 49 H ABG pO2 81 L ABG HCO3 17 L 16 L ABG Total CO2 18 L VBG pH VBG HCO3 Sodium Chloride Carbon Dioxide BUN Creatinine Glucose POC Glucose (mg/dL) 121 H Calcium AST ALT Alkaline Phosphatase Lactate Dehydrogenase C-Reactive Protein Total Protein Albumin TSH Free T4 - Diagnostic Findings Chest x-ray: image reviewed (As noted in HPI.) CT scan - chest: image reviewed (As noted in HPI.) Additional studies: Venous Doppler of lower extremities as noted in HPI. Ultrasound of the chest showed small pleural effusion, not safe to perform thoracentesis based on the findings of the ultrasound of the chest. Assessment and Plan Assessment: Impression: Acute hypoxic respiratory failure Acute community-acquired pneumonia and parapneumonic effusion. Acute septic shock Acute thyroid storm and hyperthyroidism Atrial fibrillation with RVR secondary to hyperthyroidism. Shock liver. Acute kidney injury secondary to sepsis and septic shock is most likely explanation with hypotension and acute tubular necrosis. History of hypertension. History of COPD. Acute right femoral deep vein thrombosis Recommendation: Continue ventilatory support, patient is now on assist control mode of mechanical ventilation with a rate of 28. Tidal volume is 470. PEEP is 5 and FiO2 is 50%. Continue sodium bicarb drip. And adjust accordingly based on ABG Continue antibiotics empirically for presumptive right lower lobe pneumonia, community-acquired. Continue bronchodilators for underlying COPD, severity of which is not clear based on the history. Continue Tapazole and beta blockers for thyroid storm and hyperthyroidism. Discontinue PTU. Continue hemodynamic support/pressors as needed. Continue/resume heparin and follow the protocol, patient is being treated for acute right lower extremity DVT. Prognosis is guarded, patient is critically ill. Critical care time is over 1 hour not including the time placed on procedures. Monitor daily labs including ABG, complete metabolic profile, liver profile, renal profile, and adjust treatment accordingly. Start the nutritional support. GI and DVT prophylaxis. Time with Patient: Greater than 30
[2020-01-23] MEDS ORDERED: SODIUM CHLORIDE 0.9% 1,000 ML IV ONE ×2 (13:30→14:48)
[2020-01-23 13:45] LABS: ABG Base Excess -10.4 mmol/L; ABG HCO3 17 mmol/L (21-25); ABG Oxygen Saturation 96.4 % (94-97); ABG PCO2 39 mmHg (35-45); ABG PH 7.25 (7.35-7.45); ABG PO2 89 mmHg (83-108); ABG TCO2 18 mmol/L (19-24)
--- NOTE | 2020-01-23 13:47 | PCN ---
PROCEDURE NOTE PROCEDURE PERFORMED: Placement of a right radial arterial line. PREOPERATIVE DIAGNOSIS: Acute hypoxic respiratory failure. POSTOPERATIVE DIAGNOSIS: Acute hypoxic respiratory failure. ANESTHESIA: None deployed. PROCEDURE: The right wrist was prepared in a sterile fashion. Drapes were applied. The right radial artery was palpated, cannulated, and a guidewire was placed. A Cook catheter was inserted over the guidewire, and the guidewire was removed. Good blood flow, good waveform noted. No evidence of any immediate complications. Line was secured using 3.0 silk sutures. MMODL / IJN: [id number] /
[2020-01-23] MEDS: SODIUM CHLORIDE 0.9% 150 ML with VASOPRESSIN 60 UNIT IV SCH ×2 (15:08)
[2020-01-23] MEDS: NOREPINEPHRINE 32 MG in SODIUM CHLORIDE 0.9% 218 ML IV SCH (15:08)
--- NOTE | 2020-01-23 15:15 | P.NPCON ---
History of Present Illness - Reason for Consult Consult date: 01/23/20 acute renal failure - Chief Complaint Acute kidney injury - History of Present Illness 69-year-old white female coming to the hospital with progressive shortness of breath. She has history of underlying COPD. She was recently seen in primary care office was given steroids and started on Lasix. She continued to get worse and presented to the hospital. She was initially on a nonrebreather and currently on a ventilator. She was taking lisinopril, Lasix and ibuprofen at home. Daughter is at bedside. No previous renal function to compare. On presentation creatinine was 1.3 and 1.7 MG per DL today. She is oliguric since morning and produced about 50 mL of urine. Currently on high-dose levo and vasopressin. Also on Cardizem for A. fib and bicarb drip. Review of Systems ROS unobtainable: due to endotracheal tube Past Medical History Past Medical History: Atrial Fibrillation, COPD, Hypertension History of Any Multi-Drug Resistant Organisms: None Reported Past Surgical History: Unable to Obtain Past Anesthesia/Blood Transfusion Reactions: Unable to Obtain Past Psychological History: No Psychological Hx Reported Smoking Status: Former smoker Past Drug Use History: None Reported Medications and Allergies Home Medications Medication Instructions Recorded Confirmed Type Albuterol Sulfate [Ventolin HFA] 2 puff INHALATION RT-QID PRN 01/22/20 01/22/20 History Alendronate Sodium [Fosamax] 70 mg PO LOYOLA 01/22/20 01/22/20 History Ascorbic Acid [Vitamin C] 1,000 mg PO DAILY 01/22/20 01/22/20 History Aspirin 325 mg PO HS 01/22/20 01/22/20 History Atorvastatin Calcium [Lipitor] 80 mg PO HS 01/22/20 01/22/20 History Celecoxib [CeleBREX] 200 mg PO DAILY 01/22/20 01/22/20 History Famotidine 20 mg PO BID PRN 01/22/20 01/22/20 History Fluticasone Nasal [place] [Flonase 1 spray EA NOSTRIL DAILY PRN 01/22/20 01/22/20 History Nasal [place]] Fluticasone/Vilanterol [Breo 1 inhalation INHALATION RT-HS 01/22/20 01/22/20 History Ellipta 200-25 Mcg INH] Furosemide [Lasix] 20 mg PO DAILY 01/22/20 01/22/20 History Ibuprofen 800 mg PO BID PRN 01/22/20 01/22/20 History Loperamide [Imodium] 2 mg PO QID PRN 01/22/20 01/22/20 History Potassium Gluconate 99 mg PO HS 01/22/20 01/22/20 History Umeclidinium [place] [Incruse 1 puff INHALATION RT-DAILY 01/22/20 01/22/20 History Ellipta] amLODIPine [Norvasc] 10 mg PO DAILY 01/22/20 01/22/20 History lisinopriL 40 mg PO DAILY 01/22/20 01/22/20 History Allergies Allergy/AdvReac Type Severity Reaction Status Date / Time prednisone Allergy Rash/Hives Verified 01/22/20 21:55 Physical Exam Vitals: Vital Signs Temp Pulse Resp BP Pulse Ox 01/23/20 15:00 82 37 H 97 01/23/20 14:00 100 32 H 97 01/23/20 13:00 97 34 H 97 01/23/20 12:00 96.9 F L 96 35 H 96 01/23/20 11:16 90 01/23/20 11:02 94 01/23/20 11:00 94 29 H 84/55 96 01/23/20 10:00 98 28 H 80/52 94 L 01/23/20 09:00 99 28 H 104/55 94 L 01/23/20 08:00 97.7 F 95 28 H 79/53 96 01/23/20 07:36 94 01/23/20 07:22 92 01/23/20 07:00 92 20 93/54 97 01/23/20 06:30 94 20 91/60 97 01/23/20 06:00 95 20 98/56 97 01/23/20 05:30 95 20 103/63 97 01/23/20 05:00 95 20 107/61 97 01/23/20 04:30 94 20 90/59 97 01/23/20 04:05 90 01/23/20 04:00 97.8 F 77 20 93/65 97 01/23/20 03:50 76 01/23/20 03:30 77 20 94/67 97 01/23/20 03:00 101 H 20 113/74 96 01/23/20 02:30 112 H 20 99/81 97 01/23/20 02:00 76 20 77/61 95 01/23/20 01:30 90 20 127/110 96 01/23/20 01:00 46 H 116/78 88 L 01/23/20 00:30 165 H 46 H 91/74 95 01/23/20 00:00 97.5 F L 151 H 46 H 89/68 95 01/22/20 23:52 93 L 01/22/20 23:32 144 H 34 H 124/71 96 01/22/20 23:00 161 H 32 H 102/73 100 01/22/20 22:46 170 H 34 H 102/73 97 01/22/20 22:30 176 H 73 H 101/60 99 01/22/20 22:29 98.3 F 149 H 34 H 134/50 98 01/22/20 22:17 161 H 34 H 101/60 98 01/22/20 22:00 176 H 37 H 106/84 97 01/22/20 21:51 165 H 36 H 114/78 98 01/22/20 21:49 165 H 56 H 01/22/20 21:23 163 H 36 H 107/67 98 01/22/20 21:12 168 H 33 H 109/87 96 01/22/20 21:10 174 H 34 H 109/87 98 01/22/20 21:04 184 H 38 H 109/87 98 01/22/20 21:01 170 H 38 H 94/84 98 01/22/20 20:59 170 H 34 H 119/76 97 01/22/20 20:27 98.2 F 203 H 42 H 110/92 97 Intake and Output 01/23/20 01/23/20 01/23/20 06:59 14:59 22:59 Intake Total 630.25 3024.444 60 Output Total 85 10 5 Balance 545.25 3014.444 55 Intake: IV 550 2520 60 Dextrose 5% in Water 1, 350 50 000 ml @ 50 mls/hr IV . Q23H [facility] with Sodium Bicarb (1 Meq/ml) 150 ml Rx#:[id number] Sodium Chloride 0.9% 1, 70 10 000 ml @ 10 mls/hr IV . Q24H [facility] Rx#:[id number] Sodium Chloride 0.9% 1, 550 100 000 ml @ 100 mls/hr IV . Q10H [facility] Rx#:[id number] Sodium Chloride 0.9% 1, 2000 000 ml @ 999 mls/hr IV . Q1H1M [facility] Rx#:[id number] Intake, IV Titration 80.25 404.444 Amount Diltiazem 125 mg In 80.25 Sodium Chloride 0.9% 100 ml @ 15 MG/HR 15 mls/hr IV .Q8H20M [facility] Rx#: [id number] Heparin Sod,Pork in 0.45% 182.383 NaCl 25,000 unit In 0.45 % NaCl 1 250ml.bag @ 18 UNITS/KG/HR 12.492 mls/hr IV .Q20H1M [facility] Rx#: [id number] Norepinephrine 4 mg In 122.061 Sodium Chloride 0.9% 250 ml @ 0.05 MCG/KG/MIN 13. 945 mls/hr IV .[id number] [facility] Rx#:[id number] propofoL 1,000 mg In 100 Empty Bag 1 bag @ Titrate IV .Q0M [facility] Rx#: [id number] Oral 100 Output: Urine 85 10 5 Other: Voiding Method Indwelling Catheter Indwelling Catheter Weight 73.2 kg ABP, PAP, CO, CI - Last 8 Hours Arterial Blood Pressure 83/47 Arterial Blood Pressure 92/57 Arterial Blood Pressure 102/55 Arterial Blood Pressure 97/55 Arterial Blood Pressure 94/58 Intubated sedated Bilateral air entry S1-S2 heard Oral intubation Abdomen soft tender Ford catheter Edema Results - Lab Results Most recent lab results ABG pH 7.25 (7.35-7.45) L 01/23/20 13:41 ABG pCO2 39 mmHg (35-45) 01/23/20 13:41 ABG pO2 89 mmHg (83-108) 01/23/20 13:41 ABG HCO3 17 mmol/L (21-25) L 01/23/20 13:41 ABG O2 Saturation 96.4 % (94-97) 01/23/20 13:41 Calcium 7.4 mg/dL (8.4-10.2) L 01/23/20 05:07 Magnesium 2.0 mg/dL (1.6-2.3) 01/22/20 20:40 01/23/20 05:07 01/23/20 05:07 Assessment and Plan Assessment: #1 oliguric acute kidney injury secondary to ischemic ATN from shock #2 shock on pressors, septic/cardiogenic. #3 shock liver #4 metabolic and respiratory acidosis #5 ventilator dependent respiratory failure #6 COPD Plan: #1 continue with bicarb drip for now. Agree with holding all antihypertensives including lisinopril. #2 discussed with the daughter at bedside, if renal function continues to worsen with worsening acidosis and electrolyte imbalance may need dialysis. Wants to discuss with other family members. #3 avoid nephrotoxic agents and hypotensive episodes #4 check urine analysis, FENa and FeUrea, renal ultrasound.
[2020-01-23 15:35] LABS: Basophils % (A) 0 %; Eosinophils % (A) 0 %; HCT 36.7 % (34.0-46.0); HGB 11.1 gm/dL (11.4-16.0); Hypochromasia Marked; Lymphocytes # (A) 0.8 k/uL (1.0-4.8); Lymphocytes % (A) 5 %; MCH 29.9 pg (25.0-35.0); MCHC 30.3 g/dL (31.0-37.0); MCV 98.6 fL (80.0-100.0); Mean Platelet Volume 9.8; Monocytes # (A) 0.6 k/uL (0-1.0); Monocytes % (A) 4 %; Neutrophils # (A) 14.9 k/uL (1.3-7.7); Neutrophils % (A) 91 %; Platelet Count 115 k/uL (150-450); RBC 3.72 m/uL (3.80-5.40); RDW 13.7 % (11.5-15.5); WBC 16.5 k/uL (3.8-10.6)
[2020-01-23 16:06] LABS: Hyaline Casts,Urine 3 /lpf (0-2); Mucus,Urine Moderate /hpf; RBC,Urine 8 /hpf (0-5); Squamous Epithelial Cell,Urine 2 /hpf (0-4); WBC,Urine 20 /hpf (0-5)
[2020-01-23 16:11] LABS: Color,Urine Yellow
[2020-01-23 16:12] LABS: Appearance,Urine Clear (Clear); Creatinine,Urine Random 56.2 mg/dL; Protein,Urine 2+ (Negative)
[2020-01-23 16:13] LABS: Bilirubin,Urine Negative (Negative); Blood,Urine Large (Negative); Glucose,Urine (UA) Negative (Negative); Ketones,Urine Negative (Negative); Leukocyte Esterase,Urine Negative (Negative); Nitrite,Urine Negative (Negative); Urobilinogen,Urine <2.0 mg/dL (<2.0)
--- NOTE | 2020-01-23 16:14 | PN ---
PROGRESS NOTE DATE OF SERVICE: 01/23/2020 I am covering for Dr. Arreola. This 69-year-old woman was admitted with acute respiratory failure, has got acute right- sided pneumonia, Covid-19 pneumonia suspected, patient in acute respiratory failure. Patient mechanically intubated. Patient also was on IV heparin because of atrial fibrillation as well as acute DVT on the right leg, but apparently there was some bleeding and heparin is on hold. Multiple consultants including Cardiology, pulmonology following the patient closely. The patient also received esmolol. Covid-19 is pending at this time. The patient also has significant respiratory acidosis. Infectious Disease being consulted. The patient is on Levophed drip because of hypotension. Past medical history reviewed. Review of systems could not be taken. The patient mechanically ventilated and sedated. MEDICATIONS: Current medications are: 1. DuoNeb q.i.d. and p.r.n. 2. Zithromax. 3. Pulmicort. 4. Rocephin. 5. Peridex. 6. Esmolol. 7. Cardizem previously. 8. Fluticasone. 9. IV heparin on hold. 10.Tapazole. 11.Narcan. 12.Protonix. PHYSICAL EXAMINATION: The patient is mechanically ventilated and sedated. Pulse is 96. Blood pressure 97/55, respiration 30, temperature 98.9, pulse ox 98% on 50% mechanical ventilation. Vent settings are noted. HEENT: Conjunctivae normal. Oral mucosa moist. Neck is no jugular venous distention. Cardiovascular: S1, S2 muffled. Respiration: Breath sounds diminished in the bases. Bilateral scattered rhonchi and expiratory wheezing. ABDOMEN: Soft, nontender. Legs no edema, no cyanosis. No focal deficits. LABS: WBC 19.2. , D-dimer 6.50 and ABG 7.25. Sodium is 136 and CO2 is 14. Creatinine is 1.72. AST is 523, ALT is 264, total bilirubin is 0.7, LDH is 2400. C-reactive protein is 256. ASSESSMENT: 1. Chronic obstructive pulmonary disease acute exacerbation with acute right lower lobe pneumonia possibly gram-negative with acute hypoxic respiratory failure with possible severe sepsis and septic shock. 2. Change in mental status, acute metabolic encephalopathy secondary to acute respiratory failure. 3. Mechanical ventilation because of acute hypoxic respiratory failure secondary to above mentioned medical issues. 4. Acute respiratory acidosis, metabolic acidosis. 5. Possible bilateral interstitial pneumonia, suspect Covid-19 pneumonia. 6. Acute right leg deep vein thrombosis. 7. Atrial fibrillation with rapid ventricular rate, which was refractory. 8. Elevated D-dimer. 9. Increased WBC. 10.Elevated creatinine with possible acute renal failure prerenal acute tubular necrosis. 11.Elevated AST/ALT possibly secondary sepsis. 12.Possible hyperthyroidism, new onset. 13.History atrial fibrillation. 14.History of chronic obstructive pulmonary disease. 15.History of hypertension. 16.FULL CODE. RECOMMENDATIONS AND DISCUSSION: Recommend to continue current medications. Continue with bronchodilators. Hold heparin because of concerns of bleeding at this time. Dr. Guajardo has been consulted. Consult Infectious Disease. Otherwise, will repeat free T4 and TSH tomorrow and the patient is on methimazole. Otherwise, continue to monitor. Overall prognosis extremely guarded. Covid-19 testing is pending at this time. Also recommend UA with micro. Repeat chest x-ray as well. See orders for details. Prognosis guarded. Further recommendations to follow. MMODL / IJN: [id number] /
--- NOTE | 2020-01-23 17:51 | US ---
EXAMINATION TYPE: US kidneys/renal and bladder DATE OF EXAM: 01/23/2020 COMPARISON: NONE CLINICAL HISTORY: john. JOHN, exam done portable in ICU. EXAM MEASUREMENTS: Right Kidney: 11.1 x 4.8 x 5.1 cm Left Kidney: 9.9 x 5.1 x 3.9 cm Right Kidney: cortical thinning, no hydronephrosis or masses seen Left Kidney: cortical thinning, no hydronephrosis or masses seen Bladder: not distended, ivory catheter Thickened gallbladder wall, pericholecystic fluid IMPRESSION: Bladder was empty during the exam. There is mild renal cortical atrophy. No renal obstruction. Gallbladder wall thickening suggestive of cholecystitis.
[2020-01-23] MEDS ORDERED: CISATRACURIUM 2 MG/ML 5 ML VIAL IV ONE (18:20)
[2020-01-23] MEDS ORDERED: HYDROCORTISONE SUCCINATE 100 MG/2 ML VIAL IV STA (18:21)
[2020-01-23] MEDS ORDERED: CISATRACURIUM 200 MG in SODIUM CHLORIDE 0.9% 180 ML IV SCH (18:30)
[2020-01-23 19:40] LABS: Glucose,Whole Blood 146 mg/dL (75-99)
[2020-01-23] MEDS: HYDROmorphone 0.5 MG/0.5 ML SYRINGE IVP SCH ×2 (20:47→22:52)
--- NOTE | 2020-01-23 20:47 | P.CONS ---
History of Present Illness - Reason for Consult Consult date: 01/23/20 Elevated liver enzymes Requesting physician: Yamil Noel - Chief Complaint Shortness of breath - History of Present Illness 69-year-old female with a medical history significant for COPD, hypertension, prior cardiac ablation for atrial fibrillation who presented to the hospital due to worsening shortness of breath. Of note, the patient is currently intubated and sedated and history is been taken in discussion with the medical team and on review of the medical record. Patient had been experiencing worsening shortness of breath prior to presentation. She was found to be in acute respiratory distress on presentation is currently intubated and sedated. She is being treated for septic shock, and possible pneumonia. The GI service was consult to see the patient due to elevated liver enzymes which have increased since presentation with total bilirubin 0.7 from 0.6, alkaline phosphatase 247 from 257, AST 523 from 93 and ALT 264 from 69. Other laboratory evaluation significant for WBC 19.2, hemoglobin 11.8 and platelet count 296,000. Patient was found to have a right lower extremity DVT on presentation with no evidence of pulmonary embolism on computed tomography scan of the chest. Ultrasound of the abdomen did show some colon wall thickening. Review of Systems ROS unobtainable: due to mental status (Patient currently intubated and sedated) Past Medical History Past Medical History: Atrial Fibrillation, COPD, Hypertension History of Any Multi-Drug Resistant Organisms: None Reported Past Surgical History: Unable to Obtain Past Anesthesia/Blood Transfusion Reactions: Unable to Obtain Past Psychological History: No Psychological Hx Reported Smoking Status: Former smoker Past Drug Use History: None Reported Additional History: Family history: Noncontributory to current medical presentation Medications and Allergies Home Medications Medication Instructions Recorded Confirmed Type Albuterol Sulfate [Ventolin HFA] 2 puff INHALATION RT-QID PRN 01/22/20 01/22/20 History Alendronate Sodium [Fosamax] 70 mg PO LOYOLA 01/22/20 01/22/20 History Ascorbic Acid [Vitamin C] 1,000 mg PO DAILY 01/22/20 01/22/20 History Aspirin 325 mg PO HS 01/22/20 01/22/20 History Atorvastatin Calcium [Lipitor] 80 mg PO HS 01/22/20 01/22/20 History Celecoxib [CeleBREX] 200 mg PO DAILY 01/22/20 01/22/20 History Famotidine 20 mg PO BID PRN 01/22/20 01/22/20 History Fluticasone Nasal Grandy [Flonase 1 spray EA NOSTRIL DAILY PRN 01/22/20 01/22/20 History Nasal Grandy] Fluticasone/Vilanterol [Breo 1 inhalation INHALATION RT-HS 01/22/20 01/22/20 History Ellipta 200-25 Mcg INH] Furosemide [Lasix] 20 mg PO DAILY 01/22/20 01/22/20 History Ibuprofen 800 mg PO BID PRN 01/22/20 01/22/20 History Loperamide [Imodium] 2 mg PO QID PRN 01/22/20 01/22/20 History Potassium Gluconate 99 mg PO HS 01/22/20 01/22/20 History Umeclidinium Barlow [Incruse 1 puff INHALATION RT-DAILY 01/22/20 01/22/20 History Ellipta] amLODIPine [Norvasc] 10 mg PO DAILY 01/22/20 01/22/20 History lisinopriL 40 mg PO DAILY 01/22/20 01/22/20 History Allergies Allergy/AdvReac Type Severity Reaction Status Date / Time prednisone Allergy Rash/Hives Verified 01/22/20 21:55 Physical Exam Vitals: Vital Signs Temp Pulse Resp BP Pulse Ox 01/23/20 07:36 94 01/23/20 07:22 92 01/23/20 07:00 92 20 93/54 97 01/23/20 06:30 94 20 91/60 97 01/23/20 06:00 95 20 98/56 97 01/23/20 05:30 95 20 103/63 97 01/23/20 05:00 95 20 107/61 97 01/23/20 04:30 94 20 90/59 97 01/23/20 04:05 90 01/23/20 04:00 97.8 F 77 20 93/65 97 01/23/20 03:50 76 01/23/20 03:30 77 20 94/67 97 01/23/20 03:00 101 H 20 113/74 96 01/23/20 02:30 112 H 20 99/81 97 01/23/20 02:00 76 20 77/61 95 01/23/20 01:30 90 20 127/110 96 01/23/20 01:00 46 H 116/78 88 L 08/16/20 00:30 165 H 46 H 91/74 95 01/23/20 00:00 97.5 F L 151 H 46 H 89/68 95 01/22/20 23:52 93 L 01/22/20 23:32 144 H 34 H 124/71 96 01/22/20 23:00 161 H 32 H 102/73 100 01/22/20 22:46 170 H 34 H 102/73 97 01/22/20 22:30 176 H 73 H 101/60 99 01/22/20 22:29 98.3 F 149 H 34 H 134/50 98 01/22/20 22:17 161 H 34 H 101/60 98 01/22/20 22:00 176 H 37 H 106/84 97 01/22/20 21:51 165 H 36 H 114/78 98 01/22/20 21:49 165 H 56 H 01/22/20 21:23 163 H 36 H 107/67 98 01/22/20 21:12 168 H 33 H 109/87 96 01/22/20 21:10 174 H 34 H 109/87 98 01/22/20 21:04 184 H 38 H 109/87 98 01/22/20 21:01 170 H 38 H 94/84 98 01/22/20 20:59 170 H 34 H 119/76 97 01/22/20 20:27 98.2 F 203 H 42 H 110/92 97 Intake and Output 01/22/20 01/23/20 01/23/20 22:59 06:59 14:59 Intake Total 630.25 154.151 Output Total 85 0 Balance 545.25 154.151 Intake: IV 550 100 Sodium Chloride 0.9% 1, 550 100 000 ml @ 100 mls/hr IV . Q10H ELIANE Rx#:[id number] Intake, IV Titration 80.25 54.151 Amount Diltiazem 125 mg In 80.25 Sodium Chloride 0.9% 100 ml @ 15 MG/HR 15 mls/hr IV .Q8H20M ELIANE Rx#: [id number] Norepinephrine 4 mg In 54.151 Sodium Chloride 0.9% 250 ml @ 0.05 MCG/KG/MIN 13. 945 mls/hr IV .[id number] ELIANE Rx#:[id number] Output: Urine 85 0 Other: Voiding Method Indwelling Catheter Weight 69.4 kg 73.2 kg On physical examination, patient appears comfortable in no apparent distress. HEAD: Normocephalic, atraumatic. EYES: No scleral icterus. No conjunctival injection. MOUTH: No lesions, tongue midline, endotracheal tube in place. NECK: Trachea midline, no gross abnormalities. CHEST: Course respiratory noises normal and feels. HEART: S1-S2 appreciated. ABDOMEN: Soft, obese. Bowel sounds are positive. No organomegaly. No guarding or rigidity. EXTREMITIES: Bilateral pedal edema. SKIN: No rashes, no jaundice. NEUROLOGIC: Intubated and sedated. Results CBC & Chem 7: 01/23/20 15:16 01/23/20 05:07 Labs: Abnormal Lab Results - Last 24 Hours (Table) 01/22/20 01/22/20 01/22/20 Range/Units 20:40 20:40 20:40 WBC 19.4 H (3.8-10.6) k/uL MCV (80.0-100.0) fL MCHC 30.9 L (31.0-37.0) g/dL Plt Count (150-450) k/uL Neutrophils # 16.2 H (1.3-7.7) k/uL Neutrophils # (Manual) (1.3-7.7) k/uL Lymphocytes # (Manual) (1.0-4.8) k/uL Monocytes # 1.2 H (0-1.0) k/uL APTT (22.0-30.0) sec D-Dimer 3.38 H (<0.60) mg/L FEU ABG pH (7.35-7.45) ABG pCO2 (35-45) mmHg ABG pO2 (83-108) mmHg ABG HCO3 (21-25) mmol/L ABG Total CO2 (19-24) mmol/L VBG pH (7.31-7.41) VBG HCO3 (24-28) mmol/L Sodium (137-145) mmol/L Chloride (98-107) mmol/L Carbon Dioxide 17 L (22-30) mmol/L BUN 39 H (7-17) mg/dL Creatinine 1.30 H (0.52-1.04) mg/dL Glucose 173 H (74-99) mg/dL POC Glucose (mg/dL) (75-99) mg/dL Calcium (8.4-10.2) mg/dL AST 93 H (14-36) U/L ALT 69 H (4-34) U/L Alkaline Phosphatase 257 H (38-126) U/L Lactate Dehydrogenase (313-618) U/L C-Reactive Protein (<10.0) mg/L Total Protein 5.9 L (6.3-8.2) g/dL Albumin 3.0 L (3.5-5.0) g/dL TSH (0.465-4.680) mIU/L Free T4 (0.78-2.19) ng/dL 01/22/20 01/22/20 01/22/20 Range/Units 20:40 20:42 23:54 WBC (3.8-10.6) k/uL MCV (80.0-100.0) fL MCHC (31.0-37.0) g/dL Plt Count (150-450) k/uL Neutrophils # (1.3-7.7) k/uL Neutrophils # (Manual) (1.3-7.7) k/uL Lymphocytes # (Manual) (1.0-4.8) k/uL Monocytes # (0-1.0) k/uL APTT (22.0-30.0) sec D-Dimer (<0.60) mg/L FEU ABG pH (7.35-7.45) ABG pCO2 (35-45) mmHg ABG pO2 (83-108) mmHg ABG HCO3 (21-25) mmol/L ABG Total CO2 (19-24) mmol/L VBG pH 7.25 L (7.31-7.41) VBG HCO3 17 L (24-28) mmol/L Sodium (137-145) mmol/L Chloride (98-107) mmol/L Carbon Dioxide (22-30) mmol/L BUN (7-17) mg/dL Creatinine (0.52-1.04) mg/dL Glucose (74-99) mg/dL POC Glucose (mg/dL) 169 H (75-99) mg/dL Calcium (8.4-10.2) mg/dL AST (14-36) U/L ALT (4-34) U/L Alkaline Phosphatase (38-126) U/L Lactate Dehydrogenase (313-618) U/L C-Reactive Protein (<10.0) mg/L Total Protein (6.3-8.2) g/dL Albumin (3.5-5.0) g/dL TSH <0.015 L (0.465-4.680) mIU/L Free T4 5.09 H (0.78-2.19) ng/dL 01/23/20 01/23/20 01/23/20 Range/Units 03:34 05:07 05:07 WBC 19.2 H (3.8-10.6) k/uL MCV 103.5 H D (80.0-100.0) fL MCHC 29.3 L (31.0-37.0) g/dL Plt Count 146 L (150-450) k/uL Neutrophils # (1.3-7.7) k/uL Neutrophils # (Manual) 17.40 H (1.3-7.7) k/uL Lymphocytes # (Manual) 0.77 L (1.0-4.8) k/uL Monocytes # (0-1.0) k/uL APTT >200.0 H* (22.0-30.0) sec D-Dimer 6.50 H (<0.60) mg/L FEU ABG pH (7.35-7.45) ABG pCO2 (35-45) mmHg ABG pO2 (83-108) mmHg ABG HCO3 (21-25) mmol/L ABG Total CO2 (19-24) mmol/L VBG pH (7.31-7.41) VBG HCO3 (24-28) mmol/L Sodium (137-145) mmol/L Chloride (98-107) mmol/L Carbon Dioxide (22-30) mmol/L BUN (7-17) mg/dL Creatinine (0.52-1.04) mg/dL Glucose (74-99) mg/dL POC Glucose (mg/dL) 167 H (75-99) mg/dL Calcium (8.4-10.2) mg/dL AST (14-36) U/L ALT (4-34) U/L Alkaline Phosphatase (38-126) U/L Lactate Dehydrogenase (313-618) U/L C-Reactive Protein (<10.0) mg/L Total Protein (6.3-8.2) g/dL Albumin (3.5-5.0) g/dL TSH (0.465-4.680) mIU/L Free T4 (0.78-2.19) ng/dL 01/23/20 01/23/20 01/23/20 Range/Units 05:07 05:26 07:20 WBC (3.8-10.6) k/uL MCV (80.0-100.0) fL MCHC (31.0-37.0) g/dL Plt Count (150-450) k/uL Neutrophils # (1.3-7.7) k/uL Neutrophils # (Manual) (1.3-7.7) k/uL Lymphocytes # (Manual) (1.0-4.8) k/uL Monocytes # (0-1.0) k/uL APTT (22.0-30.0) sec D-Dimer (<0.60) mg/L FEU ABG pH 6.87 L* (7.35-7.45) ABG pCO2 77 H* (35-45) mmHg ABG pO2 129 H (83-108) mmHg ABG HCO3 14 L (21-25) mmol/L ABG Total CO2 17 L (19-24) mmol/L VBG pH (7.31-7.41) VBG HCO3 (24-28) mmol/L Sodium 136 L (137-145) mmol/L Chloride 113 H (98-107) mmol/L Carbon Dioxide 14 L (22-30) mmol/L BUN 39 H (7-17) mg/dL Creatinine 1.72 H (0.52-1.04) mg/dL Glucose 143 H (74-99) mg/dL POC Glucose (mg/dL) 167 H (75-99) mg/dL Calcium 7.4 L (8.4-10.2) mg/dL AST 523 H (14-36) U/L ALT 264 H (4-34) U/L Alkaline Phosphatase 247 H (38-126) U/L Lactate Dehydrogenase 2400 H (313-618) U/L C-Reactive Protein 251.6 H (<10.0) mg/L Total Protein 5.5 L (6.3-8.2) g/dL Albumin 2.6 L (3.5-5.0) g/dL TSH (0.465-4.680) mIU/L Free T4 (0.78-2.19) ng/dL 01/23/20 01/23/20 Range/Units 08:48 10:10 WBC (3.8-10.6) k/uL MCV (80.0-100.0) fL MCHC (31.0-37.0) g/dL Plt Count (150-450) k/uL Neutrophils # (1.3-7.7) k/uL Neutrophils # (Manual) (1.3-7.7) k/uL Lymphocytes # (Manual) (1.0-4.8) k/uL Monocytes # (0-1.0) k/uL APTT (22.0-30.0) sec D-Dimer (<0.60) mg/L FEU ABG pH 7.07 L* 7.13 L* (7.35-7.45) ABG pCO2 60 H 49 H (35-45) mmHg ABG pO2 81 L (83-108) mmHg ABG HCO3 17 L 16 L (21-25) mmol/L ABG Total CO2 18 L (19-24) mmol/L VBG pH (7.31-7.41) VBG HCO3 (24-28) mmol/L Sodium (137-145) mmol/L Chloride (98-107) mmol/L Carbon Dioxide (22-30) mmol/L BUN (7-17) mg/dL Creatinine (0.52-1.04) mg/dL Glucose (74-99) mg/dL POC Glucose (mg/dL) (75-99) mg/dL Calcium (8.4-10.2) mg/dL AST (14-36) U/L ALT (4-34) U/L Alkaline Phosphatase (38-126) U/L Lactate Dehydrogenase (313-618) U/L C-Reactive Protein (<10.0) mg/L Total Protein (6.3-8.2) g/dL Albumin (3.5-5.0) g/dL TSH (0.465-4.680) mIU/L Free T4 (0.78-2.19) ng/dL Microbiology - Last 24 Hours (Table) 01/23/20 01:36 Sputum Culture - Preliminary Sputum US - abdomen: report reviewed (Ultrasound of the abdomen significant for some gallbladder wall thickening) Assessment and Plan (1) Elevated liver enzymes Narrative/Plan: 61-year-old female multiple medical comorbidities currently in the ICU where she is intubated and sedated for acute hypoxic respiratory failure, patient found to have DVT on presentation and being treated for possible community-acquired pneumonia. Patient had significant elevation of liver enzymes predominantly in a hepatocellular pattern, likely related to hypoperfusion and shock liver with total bilirubin 0.7, alkaline phosphatase 247, AST 523 and ALT 264. Other possibilities include medication effect, ultrasound the abdomen did show some thickening of the gallbladder wall, however cholecystitis felt to be less likely or other etiology. Current Visit: Yes Status: Acute Code(s): R74.8 - ABNORMAL LEVELS OF OTHER SERUM ENZYMES SNOMED Code(s): 128942615 (2) Lower leg DVT (deep venous thromboembolism), acute Current Visit: Yes Status: Acute Code(s): I82.4Z9 - ACUTE EMBLSM AND THOMBOS UNSP DEEP VN UNSP DISTAL LOW EXTRM SNOMED Code(s): 083123815 Plan: Supportive care Continue ICU management Continue to monitor CBC, BMP, LFTs Acute viral hepatitis panel ordered Ultrasound of the abdomen significant only for some gallbladder wall thickening If liver enzymes do not improve with supportive measures will order full liver serologies, otherwise suspect elevation is secondary to hypoperfusion and shock liver Thank you for allowing us to participate in the care of this patient
[2020-01-23] MEDS ORDERED: AZITHROMYCIN 500 MG in SODIUM CHLORIDE 0.9% 250 ML IVPB SCH (21:00)
[2020-01-23] MEDS ORDERED: ATORVASTATIN 80 MG TAB PO SCH (21:00)
[2020-01-23 22:12] LABS: ABG Base Excess -12.2 mmol/L; ABG HCO3 16 mmol/L (21-25); ABG Oxygen Saturation 95.7 % (94-97); ABG PCO2 43 mmHg (35-45); ABG PO2 92 mmHg (83-108); ABG TCO2 17 mmol/L (19-24)
[2020-01-23 22:13] LABS: ABG PH 7.18 (7.35-7.45)
[2020-01-23] MEDS: HEPARIN SOD,PORK IN 0.45% NACL 25,000 UNIT in 0.45% NACL 1 250ML.BAG IV SCH (22:48)
[2020-01-23 23:57] LABS: Glucose,Whole Blood 207 mg/dL (75-99)
[2020-01-24] MEDS: ESMOLOL IN SODIUM CHLORIDE PMX 2.5 GM in SALINE 1 250ML.BAG IV SCH ×2 (00:18→06:23)
[2020-01-24] MEDS: IPRATROPIUM-ALBUTEROL 3 ML NEB INHALATION SCH ×6 (00:29→19:11)
[2020-01-24] MEDS: INSULIN ASPART (NovoLOG) 100 UNIT/ML VIAL SQ SCH ×4 (00:31→19:02)
[2020-01-24] MEDS: HYDROmorphone 0.5 MG/0.5 ML SYRINGE IVP SCH ×5 (00:49→10:47)
[2020-01-24] MEDS: DILTIAZEM 125 MG in SODIUM CHLORIDE 0.9% 100 ML IV SCH ×3 (02:29→19:02)
--- NOTE | 2020-01-24 02:37 | PCN ---
PROCEDURE NOTE OPERATIVE REPORT: Placement of the right internal jugular central line. PREOPERATIVE DIAGNOSIS: Acute hypoxic respiratory failure, sepsis, thyroid storm. POSTOPERATIVE DIAGNOSIS: Acute hypoxic respiratory failure, sepsis, thyroid storm. ANESTHESIA USED: 2 mL of 1% lidocaine. PROCEDURE: The patient was placed in a Trendelenburg position, the area of the right cervical region was prepared in a sterile fashion and drapes were applied. The area behind the posterior belly of the sternocleidomastoid was anesthetized locally with lidocaine. Then, using the posterior approach, the right internal jugular vein was easily cannulated, a guidewire was placed, area around the guidewire was dilated. Then a triple-lumen catheter was inserted over the guidewire, the guidewire was removed. Good blood flow noted in the 3 different ports of the triple-lumen catheter. The line was secured using 3.0 silk sutures. No evidence of any immediate complication. Chest x- ray was reviewed postoperatively. MMODL / IJN: [id number] /
[2020-01-24 04:04] LABS: Glucose,Whole Blood 211 mg/dL (75-99)
[2020-01-24] MEDS ORDERED: DEXTROSE 5% IN WATER 100 ML with AMIODARONE 150 MG IV ONE (04:26)
[2020-01-24] MEDS ORDERED: AMIODARONE 360 MG in DEXTROSE 5% IN WATER 200 ML IV ONE ×2 (04:27)
[2020-01-24 05:21] LABS: ABG Base Excess -9.9 mmol/L; ABG HCO3 18 mmol/L (21-25); ABG Oxygen Saturation 94.2 % (94-97); ABG PCO2 48 mmHg (35-45); ABG PO2 82 mmHg (83-108); ABG TCO2 20 mmol/L (19-24); Allen Test Performed? Yes
[2020-01-24 05:30] LABS: ABG PH 7.19 (7.35-7.45)
[2020-01-24 05:34] LABS: Basophils # (A) 0.1 k/uL (0-0.2); Basophils % (A) 0 %; Eosinophils # (A) 0.2 k/uL (0-0.7); Eosinophils % (A) 1 %; HCT 39.2 % (34.0-46.0); HGB 12.6 gm/dL (11.4-16.0); Hypochromasia Marked; Lymphocytes # (A) 1.2 k/uL (1.0-4.8); Lymphocytes % (A) 5 %; MCH 31.2 pg (25.0-35.0); MCHC 32.3 g/dL (31.0-37.0); MCV 96.8 fL (80.0-100.0); Mean Platelet Volume 9.3; Monocytes # (A) 0.4 k/uL (0-1.0); Monocytes % (A) 2 %; Neutrophils # (A) 22.3 k/uL (1.3-7.7); Neutrophils % (A) 92 %; Platelet Count 130 k/uL (150-450); RBC 4.05 m/uL (3.80-5.40); RDW 13.7 % (11.5-15.5); WBC 24.2 k/uL (3.8-10.6)
[2020-01-24 05:47] LABS: Glucose,Whole Blood 225 mg/dL (75-99)
[2020-01-24 05:47] LABS: African American GFR (CKD) 27 (>60 ml/min/1.73 sqM); Albumin 2.1 g/dL (3.5-5.0); Alkaline Phosphatase 310 U/L (38-126); Anion Gap 13 mmol/L; Blood Urea Nitrogen 48 mg/dL (7-17); Carbon Dioxide 17 mmol/L (22-30); Chloride 108 mmol/L (98-107); Glucose 229 mg/dL (74-99); Non-African American GFR(CKD) 24 (>60 ml/min/1.73 sqM); Phosphorus 7.9 mg/dL (2.5-4.5); Potassium 3.7 mmol/L (3.5-5.1); Sodium 138 mmol/L (137-145); Total Bilirubin 1.3 mg/dL (0.2-1.3); Total Protein 4.6 g/dL (6.3-8.2)
[2020-01-24] MEDS ORDERED: HEPARIN SODIUM,PORCINE 10,000 UNIT/ML 1 ML VIAL IV ONE (05:52)
[2020-01-24 05:58] LABS: D-Dimer 11.22 mg/L FEU (<0.60); INR 1.2 (<1.2)
[2020-01-24 05:59] LABS: Prothrombin Time 11.9 sec (9.0-12.0)
[2020-01-24 06:10] LABS: ALT 3512 U/L (4-34); C Reactive Protein 248.2 mg/L (<10.0)
[2020-01-24 06:15] LABS: AST 6680 U/L (14-36); LDH 12924 U/L (313-618)
[2020-01-24 06:54] LABS: T4, Free (Free Thyroxine) >6.99 ng/dL (0.78-2.19)
--- NOTE | 2020-01-24 07:47 | P.CONS ---
History of Present Illness - Reason for Consult Consult date: 01/23/20 Pneumonia Requesting physician: Yamil Noel - Chief Complaint Shortness of breath 1 week - History of Present Illness Patient is 69 year female with past medical history significant for COPD the patient was brought into the ER last night for evaluation of increasing shortness of breath patient symptom has been going on for about a week mostly with lower extremity swelling and shortness of breath the patient was evaluated by the PCP on Friday about 6 days prior to presentation hospital she did received a dose of steroids with concern for possible COPD exacerbation subsequently reevaluated on with the patient did have an x-rays and EKG and was diagnosed with congestive heart failure patient was started on Lasix however the patient continued having increasing shortness of breath she also have a chronic cough with no worsening cough or sputum production and no fever was reported with worsening symptoms the patient was brought into the ER at [facility], on around her VL patient has been afebrile and no fever has been recorded since admission to the hospital patient ended up getting intubated because of her worsening respiratory status and is currently on the ventilator at 50% FiO2 no significant purulent secretions has been reported by the nursing staff patient did have a mildly elevated liver enzymes however that has significantly jumped up, patient did have normal lactic acid UA is normal, the patient did have a CT angiogram that was negative for PE however did shows localized to right pleural effusion patchy air space pneumonia right lower lobe and mild right bronchial adenopathy probably due to inflammatory process, patient has been started onthe recent concern for community acquired pneumonia infection he was consulted for further recommendation regarding antibiotic therapy most information has been obtained from review the chart and talking to the daughter the patient's currently on the vent and unable to provide any history Review of Systems Positive points has been mentioned in HPI complete review could not be obtained because of his underlying mental status Past Medical History Past Medical History: Atrial Fibrillation, COPD, Hypertension History of Any Multi-Drug Resistant Organisms: None Reported Past Surgical History: Unable to Obtain Past Anesthesia/Blood Transfusion Reactions: Unable to Obtain Past Psychological History: No Psychological Hx Reported Smoking Status: Former smoker Past Drug Use History: None Reported Medications and Allergies Home Medications Medication Instructions Recorded Confirmed Type Albuterol Sulfate [Ventolin HFA] 2 puff INHALATION RT-QID PRN 01/22/20 01/22/20 History Alendronate Sodium [Fosamax] 70 mg PO LOYOLA 01/22/20 01/22/20 History Ascorbic Acid [Vitamin C] 1,000 mg PO DAILY 01/22/20 01/22/20 History Aspirin 325 mg PO HS 01/22/20 01/22/20 History Atorvastatin Calcium [Lipitor] 80 mg PO HS 01/22/20 01/22/20 History Celecoxib [CeleBREX] 200 mg PO DAILY 01/22/20 01/22/20 History Famotidine 20 mg PO BID PRN 01/22/20 01/22/20 History Fluticasone Nasal [place] [Flonase 1 spray EA NOSTRIL DAILY PRN 01/22/20 01/22/20 History Nasal [place]] Fluticasone/Vilanterol [Breo 1 inhalation INHALATION RT-HS 01/22/20 01/22/20 History Ellipta 200-25 Mcg INH] Furosemide [Lasix] 20 mg PO DAILY 01/22/20 01/22/20 History Ibuprofen 800 mg PO BID PRN 01/22/20 01/22/20 History Loperamide [Imodium] 2 mg PO QID PRN 01/22/20 01/22/20 History Potassium Gluconate 99 mg PO HS 01/22/20 01/22/20 History Umeclidinium [place] [Incruse 1 puff INHALATION RT-DAILY 01/22/20 01/22/20 History Ellipta] amLODIPine [Norvasc] 10 mg PO DAILY 01/22/20 01/22/20 History lisinopriL 40 mg PO DAILY 01/22/20 01/22/20 History Allergies Allergy/AdvReac Type Severity Reaction Status Date / Time prednisone Allergy Rash/Hives Verified 01/22/20 21:55 Physical Exam Vitals: Vital Signs Temp Pulse Resp BP Pulse Ox 01/23/20 16:06 93 34 H 01/23/20 15:49 92 34 H 01/23/20 15:00 82 37 H 97 01/23/20 14:00 100 32 H 97 01/23/20 13:00 97 34 H 97 01/23/20 12:00 96.9 F L 96 35 H 96 01/23/20 11:16 90 01/23/20 11:02 94 01/23/20 11:00 94 29 H 84/55 96 01/23/20 10:00 98 28 H 80/52 94 L 08/16/20 09:00 99 28 H 104/55 94 L 01/23/20 08:00 97.7 F 95 28 H 79/53 96 01/23/20 07:36 94 01/23/20 07:22 92 01/23/20 07:00 92 20 93/54 97 01/23/20 06:30 94 20 91/60 97 01/23/20 06:00 95 20 98/56 97 01/23/20 05:30 95 20 103/63 97 01/23/20 05:00 95 20 107/61 97 01/23/20 04:30 94 20 90/59 97 01/23/20 04:05 90 01/23/20 04:00 97.8 F 77 20 93/65 97 01/23/20 03:50 76 01/23/20 03:30 77 20 94/67 97 01/23/20 03:00 101 H 20 113/74 96 01/23/20 02:30 112 H 20 99/81 97 01/23/20 02:00 76 20 77/61 95 01/23/20 01:30 90 20 127/110 96 01/23/20 01:00 46 H 116/78 88 L 01/23/20 00:30 165 H 46 H 91/74 95 01/23/20 00:00 97.5 F L 151 H 46 H 89/68 95 01/22/20 23:52 93 L 01/22/20 23:32 144 H 34 H 124/71 96 01/22/20 23:00 161 H 32 H 102/73 100 01/22/20 22:46 170 H 34 H 102/73 97 01/22/20 22:30 176 H 73 H 101/60 99 01/22/20 22:29 98.3 F 149 H 34 H 134/50 98 01/22/20 22:17 161 H 34 H 101/60 98 01/22/20 22:00 176 H 37 H 106/84 97 01/22/20 21:51 165 H 36 H 114/78 98 01/22/20 21:49 165 H 56 H 01/22/20 21:23 163 H 36 H 107/67 98 01/22/20 21:12 168 H 33 H 109/87 96 01/22/20 21:10 174 H 34 H 109/87 98 01/22/20 21:04 184 H 38 H 109/87 98 01/22/20 21:01 170 H 38 H 94/84 98 01/22/20 20:59 170 H 34 H 119/76 97 01/22/20 20:27 98.2 F 203 H 42 H 110/92 97 Intake and Output 01/23/20 01/23/20 01/23/20 06:59 14:59 22:59 Intake Total 630.25 3024.444 75.304 Output Total 85 10 5 Balance 545.25 3014.444 70.304 Intake: IV 550 2520 60 Dextrose 5% in Water 1, 350 50 000 ml @ 50 mls/hr IV . Q23H ELIANE with Sodium Bicarb (1 Meq/ml) 150 ml Rx#:[id number] Sodium Chloride 0.9% 1, 70 10 000 ml @ 10 mls/hr IV . Q24H ELIANE Rx#:[id number] Sodium Chloride 0.9% 1, 550 100 000 ml @ 100 mls/hr IV . Q10H ELIANE Rx#:[id number] Sodium Chloride 0.9% 1, 2000 000 ml @ 999 mls/hr IV . Q1H1M ONE Rx#:[id number] Intake, IV Titration 80.25 404.444 15.304 Amount Diltiazem 125 mg In 80.25 Sodium Chloride 0.9% 100 ml @ 15 MG/HR 15 mls/hr IV .Q8H20M ELIANE Rx#: [id number] Heparin Sod,Pork in 0.45% 182.383 NaCl 25,000 unit In 0.45 % NaCl 1 250ml.bag @ 18 UNITS/KG/HR 12.492 mls/hr IV .Q20H1M ELIANE Rx#: [id number] Norepinephrine 32 mg In 15.304 Sodium Chloride 0.9% 218 ml @ 0.05 MCG/KG/MIN 1. 716 mls/hr IV .Q24H ELIANE Rx#:[id number] Norepinephrine 4 mg In 122.061 Sodium Chloride 0.9% 250 ml @ 0.05 MCG/KG/MIN 13. 945 mls/hr IV .[id number] ELIANE Rx#:[id number] propofoL 1,000 mg In 100 Empty Bag 1 bag @ Titrate IV .Q0M ELIANE Rx#: [id number] Oral 100 Output: Urine 85 10 5 Other: Voiding Method Indwelling Catheter Indwelling Catheter Weight 73.2 kg ABP, PAP, CO, CI - Last 8 Hours Arterial Blood Pressure 83/47 Arterial Blood Pressure 92/57 Arterial Blood Pressure 102/55 Arterial Blood Pressure 97/55 Arterial Blood Pressure 94/58 GENERAL DESCRIPTION: Elderly female intubated on the vent. No tachypnea or accessory muscle of respiration use. HEENT: Shows Pallor , no scleral icterus. Oral mucous membrane is dry. Patient is orally intubated NECK: Trachea central, no thyromegaly. LUNGS: Unlabored breathing. Decreased breath sounds at the base. No wheeze or crackle. HEART: S1, S2, regular rate and rhythm. No loud murmur ABDOMEN: Soft, no tenderness , guarding or rigidity, no organomegaly EXTREMITIES: 2+ edema feet. SKIN: No rash, no masses palpable. NEUROLOGICAL: The patient is sedated on the vent Results CBC & Chem 7: 01/24/20 05:20 01/24/20 05:20 Labs: Abnormal Lab Results - Last 24 Hours (Table) 01/22/20 01/22/20 01/22/20 Range/Units 20:40 20:40 20:40 WBC 19.4 H (3.8-10.6) k/uL RBC (3.80-5.40) m/uL Hgb (11.4-16.0) gm/dL MCV (80.0-100.0) fL MCHC 30.9 L (31.0-37.0) g/dL Plt Count (150-450) k/uL Neutrophils # 16.2 H (1.3-7.7) k/uL Neutrophils # (Manual) (1.3-7.7) k/uL Lymphocytes # (1.0-4.8) k/uL Lymphocytes # (Manual) (1.0-4.8) k/uL Monocytes # 1.2 H (0-1.0) k/uL APTT (22.0-30.0) sec D-Dimer 3.38 H (<0.60) mg/L FEU ABG pH (7.35-7.45) ABG pCO2 (35-45) mmHg ABG pO2 (83-108) mmHg ABG HCO3 (21-25) mmol/L ABG Total CO2 (19-24) mmol/L VBG pH (7.31-7.41) VBG HCO3 (24-28) mmol/L Sodium (137-145) mmol/L Chloride (98-107) mmol/L Carbon Dioxide 17 L (22-30) mmol/L BUN 39 H (7-17) mg/dL Creatinine 1.30 H (0.52-1.04) mg/dL Glucose 173 H (74-99) mg/dL POC Glucose (mg/dL) (75-99) mg/dL Calcium (8.4-10.2) mg/dL AST 93 H (14-36) U/L ALT 69 H (4-34) U/L Alkaline Phosphatase 257 H (38-126) U/L Ammonia (<30) umol/L Lactate Dehydrogenase (313-618) U/L C-Reactive Protein (<10.0) mg/L Total Protein 5.9 L (6.3-8.2) g/dL Albumin 3.0 L (3.5-5.0) g/dL TSH (0.465-4.680) mIU/L Free T4 (0.78-2.19) ng/dL Urine RBC (0-5) /hpf Urine WBC (0-5) /hpf Hyaline Casts (0-2) /lpf Urine Mucus (None) /hpf 01/22/20 01/22/20 01/22/20 Range/Units 20:40 20:42 23:54 WBC (3.8-10.6) k/uL RBC (3.80-5.40) m/uL Hgb (11.4-16.0) gm/dL MCV (80.0-100.0) fL MCHC (31.0-37.0) g/dL Plt Count (150-450) k/uL Neutrophils # (1.3-7.7) k/uL Neutrophils # (Manual) (1.3-7.7) k/uL Lymphocytes # (1.0-4.8) k/uL Lymphocytes # (Manual) (1.0-4.8) k/uL Monocytes # (0-1.0) k/uL APTT (22.0-30.0) sec D-Dimer (<0.60) mg/L FEU ABG pH (7.35-7.45) ABG pCO2 (35-45) mmHg ABG pO2 (83-108) mmHg ABG HCO3 (21-25) mmol/L ABG Total CO2 (19-24) mmol/L VBG pH 7.25 L (7.31-7.41) VBG HCO3 17 L (24-28) mmol/L Sodium (137-145) mmol/L Chloride (98-107) mmol/L Carbon Dioxide (22-30) mmol/L BUN (7-17) mg/dL Creatinine (0.52-1.04) mg/dL Glucose (74-99) mg/dL POC Glucose (mg/dL) 169 H (75-99) mg/dL Calcium (8.4-10.2) mg/dL AST (14-36) U/L ALT (4-34) U/L Alkaline Phosphatase (38-126) U/L Ammonia (<30) umol/L Lactate Dehydrogenase (313-618) U/L C-Reactive Protein (<10.0) mg/L Total Protein (6.3-8.2) g/dL Albumin (3.5-5.0) g/dL TSH <0.015 L (0.465-4.680) mIU/L Free T4 5.09 H (0.78-2.19) ng/dL Urine RBC (0-5) /hpf Urine WBC (0-5) /hpf Hyaline Casts (0-2) /lpf Urine Mucus (None) /hpf 01/23/20 01/23/20 01/23/20 Range/Units 03:34 05:07 05:07 WBC 19.2 H (3.8-10.6) k/uL RBC (3.80-5.40) m/uL Hgb (11.4-16.0) gm/dL MCV 103.5 H D (80.0-100.0) fL MCHC 29.3 L (31.0-37.0) g/dL Plt Count 146 L (150-450) k/uL Neutrophils # (1.3-7.7) k/uL Neutrophils # (Manual) 17.40 H (1.3-7.7) k/uL Lymphocytes # (1.0-4.8) k/uL Lymphocytes # (Manual) 0.77 L (1.0-4.8) k/uL Monocytes # (0-1.0) k/uL APTT >200.0 H* (22.0-30.0) sec D-Dimer 6.50 H (<0.60) mg/L FEU ABG pH (7.35-7.45) ABG pCO2 (35-45) mmHg ABG pO2 (83-108) mmHg ABG HCO3 (21-25) mmol/L ABG Total CO2 (19-24) mmol/L VBG pH (7.31-7.41) VBG HCO3 (24-28) mmol/L Sodium (137-145) mmol/L Chloride (98-107) mmol/L Carbon Dioxide (22-30) mmol/L BUN (7-17) mg/dL Creatinine (0.52-1.04) mg/dL Glucose (74-99) mg/dL POC Glucose (mg/dL) 167 H (75-99) mg/dL Calcium (8.4-10.2) mg/dL AST (14-36) U/L ALT (4-34) U/L Alkaline Phosphatase (38-126) U/L Ammonia (<30) umol/L Lactate Dehydrogenase (313-618) U/L C-Reactive Protein (<10.0) mg/L Total Protein (6.3-8.2) g/dL Albumin (3.5-5.0) g/dL TSH (0.465-4.680) mIU/L Free T4 (0.78-2.19) ng/dL Urine RBC (0-5) /hpf Urine WBC (0-5) /hpf Hyaline Casts (0-2) /lpf Urine Mucus (None) /hpf 01/23/20 01/23/20 01/23/20 Range/Units 05:07 05:26 07:20 WBC (3.8-10.6) k/uL RBC (3.80-5.40) m/uL Hgb (11.4-16.0) gm/dL MCV (80.0-100.0) fL MCHC (31.0-37.0) g/dL Plt Count (150-450) k/uL Neutrophils # (1.3-7.7) k/uL Neutrophils # (Manual) (1.3-7.7) k/uL Lymphocytes # (1.0-4.8) k/uL Lymphocytes # (Manual) (1.0-4.8) k/uL Monocytes # (0-1.0) k/uL APTT (22.0-30.0) sec D-Dimer (<0.60) mg/L FEU ABG pH 6.87 L* (7.35-7.45) ABG pCO2 77 H* (35-45) mmHg ABG pO2 129 H (83-108) mmHg ABG HCO3 14 L (21-25) mmol/L ABG Total CO2 17 L (19-24) mmol/L VBG pH (7.31-7.41) VBG HCO3 (24-28) mmol/L Sodium 136 L (137-145) mmol/L Chloride 113 H (98-107) mmol/L Carbon Dioxide 14 L (22-30) mmol/L BUN 39 H (7-17) mg/dL Creatinine 1.72 H (0.52-1.04) mg/dL Glucose 143 H (74-99) mg/dL POC Glucose (mg/dL) 167 H (75-99) mg/dL Calcium 7.4 L (8.4-10.2) mg/dL AST 523 H (14-36) U/L ALT 264 H (4-34) U/L Alkaline Phosphatase 247 H (38-126) U/L Ammonia (<30) umol/L Lactate Dehydrogenase 2400 H (313-618) U/L C-Reactive Protein 251.6 H (<10.0) mg/L Total Protein 5.5 L (6.3-8.2) g/dL Albumin 2.6 L (3.5-5.0) g/dL TSH (0.465-4.680) mIU/L Free T4 (0.78-2.19) ng/dL Urine RBC (0-5) /hpf Urine WBC (0-5) /hpf Hyaline Casts (0-2) /lpf Urine Mucus (None) /hpf 01/23/20 01/23/20 01/23/20 Range/Units 08:48 10:10 11:25 WBC (3.8-10.6) k/uL RBC (3.80-5.40) m/uL Hgb (11.4-16.0) gm/dL MCV (80.0-100.0) fL MCHC (31.0-37.0) g/dL Plt Count (150-450) k/uL Neutrophils # (1.3-7.7) k/uL Neutrophils # (Manual) (1.3-7.7) k/uL Lymphocytes # (1.0-4.8) k/uL Lymphocytes # (Manual) (1.0-4.8) k/uL Monocytes # (0-1.0) k/uL APTT (22.0-30.0) sec D-Dimer (<0.60) mg/L FEU ABG pH 7.07 L* 7.13 L* (7.35-7.45) ABG pCO2 60 H 49 H (35-45) mmHg ABG pO2 81 L (83-108) mmHg ABG HCO3 17 L 16 L (21-25) mmol/L ABG Total CO2 18 L (19-24) mmol/L VBG pH (7.31-7.41) VBG HCO3 (24-28) mmol/L Sodium (137-145) mmol/L Chloride (98-107) mmol/L Carbon Dioxide (22-30) mmol/L BUN (7-17) mg/dL Creatinine (0.52-1.04) mg/dL Glucose (74-99) mg/dL POC Glucose (mg/dL) (75-99) mg/dL Calcium (8.4-10.2) mg/dL AST (14-36) U/L ALT (4-34) U/L Alkaline Phosphatase (38-126) U/L Ammonia 43 H (<30) umol/L Lactate Dehydrogenase (313-618) U/L C-Reactive Protein (<10.0) mg/L Total Protein (6.3-8.2) g/dL Albumin (3.5-5.0) g/dL TSH (0.465-4.680) mIU/L Free T4 (0.78-2.19) ng/dL Urine RBC (0-5) /hpf Urine WBC (0-5) /hpf Hyaline Casts (0-2) /lpf Urine Mucus (None) /hpf 01/23/20 01/23/20 01/23/20 Range/Units 11:31 12:02 13:41 WBC (3.8-10.6) k/uL RBC (3.80-5.40) m/uL Hgb (11.4-16.0) gm/dL MCV (80.0-100.0) fL MCHC (31.0-37.0) g/dL Plt Count (150-450) k/uL Neutrophils # (1.3-7.7) k/uL Neutrophils # (Manual) (1.3-7.7) k/uL Lymphocytes # (1.0-4.8) k/uL Lymphocytes # (Manual) (1.0-4.8) k/uL Monocytes # (0-1.0) k/uL APTT 33.2 H (22.0-30.0) sec D-Dimer (<0.60) mg/L FEU ABG pH 7.25 L (7.35-7.45) ABG pCO2 (35-45) mmHg ABG pO2 (83-108) mmHg ABG HCO3 17 L (21-25) mmol/L ABG Total CO2 18 L (19-24) mmol/L VBG pH (7.31-7.41) VBG HCO3 (24-28) mmol/L Sodium (137-145) mmol/L Chloride (98-107) mmol/L Carbon Dioxide (22-30) mmol/L BUN (7-17) mg/dL Creatinine (0.52-1.04) mg/dL Glucose (74-99) mg/dL POC Glucose (mg/dL) 121 H (75-99) mg/dL Calcium (8.4-10.2) mg/dL AST (14-36) U/L ALT (4-34) U/L Alkaline Phosphatase (38-126) U/L Ammonia (<30) umol/L Lactate Dehydrogenase (313-618) U/L C-Reactive Protein (<10.0) mg/L Total Protein (6.3-8.2) g/dL Albumin (3.5-5.0) g/dL TSH (0.465-4.680) mIU/L Free T4 (0.78-2.19) ng/dL Urine RBC (0-5) /hpf Urine WBC (0-5) /hpf Hyaline Casts (0-2) /lpf Urine Mucus (None) /hpf 01/23/20 01/23/20 Range/Units 15:16 15:40 WBC 16.5 H (3.8-10.6) k/uL RBC 3.72 L (3.80-5.40) m/uL Hgb 11.1 L (11.4-16.0) gm/dL MCV (80.0-100.0) fL MCHC 30.3 L (31.0-37.0) g/dL Plt Count 115 L (150-450) k/uL Neutrophils # 14.9 H (1.3-7.7) k/uL Neutrophils # (Manual) (1.3-7.7) k/uL Lymphocytes # 0.8 L (1.0-4.8) k/uL Lymphocytes # (Manual) (1.0-4.8) k/uL Monocytes # (0-1.0) k/uL APTT (22.0-30.0) sec D-Dimer (<0.60) mg/L FEU ABG pH (7.35-7.45) ABG pCO2 (35-45) mmHg ABG pO2 (83-108) mmHg ABG HCO3 (21-25) mmol/L ABG Total CO2 (19-24) mmol/L VBG pH (7.31-7.41) VBG HCO3 (24-28) mmol/L Sodium (137-145) mmol/L Chloride (98-107) mmol/L Carbon Dioxide (22-30) mmol/L BUN (7-17) mg/dL Creatinine (0.52-1.04) mg/dL Glucose (74-99) mg/dL POC Glucose (mg/dL) (75-99) mg/dL Calcium (8.4-10.2) mg/dL AST (14-36) U/L ALT (4-34) U/L Alkaline Phosphatase (38-126) U/L Ammonia (<30) umol/L Lactate Dehydrogenase (313-618) U/L C-Reactive Protein (<10.0) mg/L Total Protein (6.3-8.2) g/dL Albumin (3.5-5.0) g/dL TSH (0.465-4.680) mIU/L Free T4 (0.78-2.19) ng/dL Urine RBC 8 H (0-5) /hpf Urine WBC 20 H (0-5) /hpf Hyaline Casts 3 H (0-2) /lpf Urine Mucus Moderate H (None) /hpf Microbiology - Last 24 Hours (Table) 01/23/20 01:36 Gram Stain - Preliminary Sputum Sputum Culture - Preliminary Assessment and Plan Assessment: 1-patient presented to the hospital with increasing shortness of breath symptom has been going on for about a week this patient to have a history of COPD now with evidence of for lower extremity swelling and concerning for congestive heart failure fluid overload and respiratory failure patient did have a CT angiogram that was negative for PE however did shows possibility of right lower lobe pneumonia and loculated effusion with concern for possible community acquired pneumonia (1) CAP (community acquired pneumonia) Current Visit: Yes Status: Acute Code(s): J18.9 - PNEUMONIA, UNSPECIFIED ORGANISM SNOMED Code(s): 848800127 Plan: 1-we will obtain sputum for Gram stain and culture 2-Rocephin 1 g daily and Zithromax to continue We will follow on clinical condition and cultures to further adjust medication if needed Thank you for this consultation will follow this patient with you Time with Patient: Greater than 30
[2020-01-24] MEDS: BUDESONIDE 1 MG/2 ML NEBU INHALATION SCH ×2 (07:50→19:11)
--- NOTE | 2020-01-24 07:59 | XR ---
EXAMINATION TYPE: XR chest 1V portable DATE OF EXAM: 01/24/2020 Comparison: 01/23/2020 Clinical History: 69-year-old female follow-up pneumonia Findings: Tip of the ET tube is not well seen, estimated at 3.2 cm from the sonya. Right IJ CVC tip in the inf erior right atrium. A G-tube courses below the diaphragm. Heart mildly enlarged. Moderate right and s mall left effusions with associated prominent opacities extending up to the mid lung on the right and increased on the left. Impression: Continued moderate right and small left pleural effusions with adjacent atelectasis and/or consolidat ion, prominent on the right but now increasing on the left.
--- NOTE | 2020-01-24 09:53 | P.PN ---
Subjective Progress Note Date: 01/24/20 Principal diagnosis: Atrial fibrillation HISTORY OF PRESENTING ILLNESS This is a pleasant 69-year-old female past medical history significant for hypertension, hyperlipidemia, atrial fibrillation, COPD who presented to the hospital on 01/21 secondary to her respiratory failure. Patient had workup including an elevated d-dimer as well as a DVT of the right femoral vein. She had a CAT scan which showed no evidence of pulmonary embolism but did have a loculated right pleural effusion and patchy airspace disease of the right lower lobe. She was ruled out for [place] in . She has since been intubated and placed on vasopressors. She has had issues with atrial fibrillation with heart rates going to 180. She was started on amiodarone drip as well as esmolol. She was also found to be hyperthyroid. 01/24/2020 She has continued low urine output. Her creatinine continues to increase, 2.09 today. She was attempted on an esmolol drip which did drop her pressures significantly per nursing and was therefore decreased to 10. She has been continued on amiodarone drip with conversion to normal sinus rhythm overnight. She has had increased liver enzymes consistent with shock liver. Her white count is increased to 24 today. She is maintained on a heparin drip for her A. fib and DVT. DIAGNOSTICS Chest xray continued right and small left pleural effusion with continued right airspace changes. Laboratory reviewed, increasing white count to 24, creatinine 2.09. Current cardiac medications include amiodarone drip, esmolol drip is currently at 10. REVIEW OF SYSTEMS At the time of my exam: Patient is intubated and sedated and I'm able to supply review of systems PHYSICAL EXAMINATION Blood pressure 104/62 heart rate 86 afebrile and maintaining oxygen saturation on mechanical ventilation. CONSTITUTIONAL: No apparent distress, chronically ill-appearing, intubated and sedated, nonresponsive HEENT: Head is normocephalic. Pupils are equal, round. Sclerae anicteric. Mucous membranes of the mouth are moist, + intubated. No JVD. No carotid bruit. CHEST EXAMINATION: + Decreased breath sounds right greater than left with rhonchi of the right lower base HEART EXAMINATION: Regular rate and rhythm. S1, S2 heard. No murmurs, gallops or rub. ABDOMEN: Soft, nontender. Positive bowel sounds. EXTREMITIES: 2+ peripheral pulses, + increased swelling of the right lower ex tremity compared to left with 2+ right lower extremity edema NEUROLOGIC EXAMINATION: Patient is sedated and intubated, nonresponsive to verbal stimuli ASSESSMENT 1. Acute respiratory failure with evidence of pneumonia in the right lower lung 2. Right femoral DVT 3. Paroxysmal atrial fibrillation, currently back in sinus rhythm 4. Septic shock currently on vasopressors with vasopressin and Levophed 5. Shock liver 6. Hyperthyroidism currently on Tapazole 7. History of hypertension 8. History of hyperlipidemia PLAN Await 2-D echo to evaluate LV function and rule out any valvular disease. Continue heparin both for atrial fibrillation as well as DVT. Her hyperthyroidism is likely playing a role with her atrial fibrillation and continue with Tapazole per primary team. Continue to stabilize her blood pressure. Unfortunately she did not tolerate the esmolol well and there are limited options for treatment of her atrial fibrillation. Since patient is currently in sinus rhythm and patient has had increase in liver enzymes we will stop amiodarone drip for now and repeat liver enzymes. Objective - Vital Signs Vital signs: Vital Signs Temp 97.6 F 01/24/20 04:00 Pulse 92 01/24/20 08:17 Resp 28 H 01/24/20 07:00 BP 66/38 01/24/20 07:00 Pulse Ox 95 01/24/20 07:00 Intake & Output 01/23/20 01/24/20 01/24/20 18:59 06:59 18:59 Intake Total 3633.774 1455.249 88 Output Total 180 219 0 Balance 3453.774 1236.249 88 Weight 77.8 kg Intake: IV 2760 953 88 0.9 NaCl Art Line Flush 33 3 Dextrose 5% in Water 1, 550 800 75 000 ml @ 75 mls/hr IV . [id number] ELIANE with Sodium Bicarb (1 Meq/ml) 150 ml Rx#:[id number] Sodium Chloride 0.9% 1, 110 120 10 000 ml @ 10 mls/hr IV . Q24H ELIANE Rx#:[id number] Sodium Chloride 0.9% 1, 100 000 ml @ 100 mls/hr IV . Q10H ELIANE Rx#:[id number] Sodium Chloride 0.9% 1, 2000 000 ml @ 999 mls/hr IV . Q1H1M ONE Rx#:[id number] Intake, IV Titration 673.774 502.249 Amount Cisatracurium 200 mg In 28.805 Sodium Chloride 0.9% 180 ml @ 1 MCG/KG/MIN 4.392 mls/hr IV .Q24H ELIANE Rx#: [id number] Esmolol in Sodium 250 Chloride Pmx 2.5 gm In Saline 1 250ml.bag @ 50 MCG/KG/MIN 20.82 mls/hr IV .Q12H1M ELIANE Rx#: [id number] Heparin Sod,Pork in 0.45% 182.383 36.608 NaCl 25,000 unit In 0.45 % NaCl 1 250ml.bag @ 18 UNITS/KG/HR 12.492 mls/hr IV .Q20H1M ELIANE Rx#: [id number] Norepinephrine 32 mg In 15.304 72.136 Sodium Chloride 0.9% 218 ml @ 0.05 MCG/KG/MIN 1. 716 mls/hr IV .Q24H ELIANE Rx#:[id number] Norepinephrine 4 mg In 122.061 Sodium Chloride 0.9% 250 ml @ 0.05 MCG/KG/MIN 13. 945 mls/hr IV .[id number] ELIANE Rx#:[id number] propofoL 1,000 mg In 104.026 364.700 Empty Bag 1 bag @ Titrate IV .Q0M ELIANE Rx#: [id number] Oral 100 Tube Feeding 100 Output: Urine 180 219 0 Other: Voiding Method Indwelling Catheter Indwelling Catheter ABP, PAP, CO, CI - Last Documented Arterial Blood Pressure 104/62 - Labs CBC & Chem 7: 01/24/20 05:20 01/24/20 05:20 Labs: Abnormal Lab Results - Last 24 Hours (Table) 01/23/20 01/23/20 01/23/20 Range/Units 08:48 10:10 11:25 WBC (3.8-10.6) k/uL RBC (3.80-5.40) m/uL Hgb (11.4-16.0) gm/dL MCHC (31.0-37.0) g/dL Plt Count (150-450) k/uL Neutrophils # (1.3-7.7) k/uL Lymphocytes # (1.0-4.8) k/uL INR (<1.2) APTT (22.0-30.0) sec D-Dimer (<0.60) mg/L FEU ABG pH 7.07 L* 7.13 L* (7.35-7.45) ABG pCO2 60 H 49 H (35-45) mmHg ABG pO2 81 L (83-108) mmHg ABG HCO3 17 L 16 L (21-25) mmol/L ABG Total CO2 18 L (19-24) mmol/L Chloride (98-107) mmol/L Carbon Dioxide (22-30) mmol/L BUN (7-17) mg/dL Creatinine (0.52-1.04) mg/dL Glucose (74-99) mg/dL POC Glucose (mg/dL) (75-99) mg/dL Calcium (8.4-10.2) mg/dL Phosphorus (2.5-4.5) mg/dL AST (14-36) U/L ALT (4-34) U/L Alkaline Phosphatase (38-126) U/L Ammonia 43 H (<30) umol/L Lactate Dehydrogenase (313-618) U/L C-Reactive Protein (<10.0) mg/L Total Protein (6.3-8.2) g/dL Albumin (3.5-5.0) g/dL TSH (0.465-4.680) mIU/L Free T4 (0.78-2.19) ng/dL Urine RBC (0-5) /hpf Urine WBC (0-5) /hpf Hyaline Casts (0-2) /lpf Urine Mucus (None) /hpf 01/23/20 01/23/20 01/23/20 Range/Units 11:31 12:02 13:41 WBC (3.8-10.6) k/uL RBC (3.80-5.40) m/uL Hgb (11.4-16.0) gm/dL MCHC (31.0-37.0) g/dL Plt Count (150-450) k/uL Neutrophils # (1.3-7.7) k/uL Lymphocytes # (1.0-4.8) k/uL INR (<1.2) APTT 33.2 H (22.0-30.0) sec D-Dimer (<0.60) mg/L FEU ABG pH 7.25 L (7.35-7.45) ABG pCO2 (35-45) mmHg ABG pO2 (83-108) mmHg ABG HCO3 17 L (21-25) mmol/L ABG Total CO2 18 L (19-24) mmol/L Chloride (98-107) mmol/L Carbon Dioxide (22-30) mmol/L BUN (7-17) mg/dL Creatinine (0.52-1.04) mg/dL Glucose (74-99) mg/dL POC Glucose (mg/dL) 121 H (75-99) mg/dL Calcium (8.4-10.2) mg/dL Phosphorus (2.5-4.5) mg/dL AST (14-36) U/L ALT (4-34) U/L Alkaline Phosphatase (38-126) U/L Ammonia (<30) umol/L Lactate Dehydrogenase (313-618) U/L C-Reactive Protein (<10.0) mg/L Total Protein (6.3-8.2) g/dL Albumin (3.5-5.0) g/dL TSH (0.465-4.680) mIU/L Free T4 (0.78-2.19) ng/dL Urine RBC (0-5) /hpf Urine WBC (0-5) /hpf Hyaline Casts (0-2) /lpf Urine Mucus (None) /hpf 01/23/20 01/23/20 01/23/20 Range/Units 15:16 15:40 19:38 WBC 16.5 H (3.8-10.6) k/uL RBC 3.72 L (3.80-5.40) m/uL Hgb 11.1 L (11.4-16.0) gm/dL MCHC 30.3 L (31.0-37.0) g/dL Plt Count 115 L (150-450) k/uL Neutrophils # 14.9 H (1.3-7.7) k/uL Lymphocytes # 0.8 L (1.0-4.8) k/uL INR (<1.2) APTT (22.0-30.0) sec D-Dimer (<0.60) mg/L FEU ABG pH (7.35-7.45) ABG pCO2 (35-45) mmHg ABG pO2 (83-108) mmHg ABG HCO3 (21-25) mmol/L ABG Total CO2 (19-24) mmol/L Chloride (98-107) mmol/L Carbon Dioxide (22-30) mmol/L BUN (7-17) mg/dL Creatinine (0.52-1.04) mg/dL Glucose (74-99) mg/dL POC Glucose (mg/dL) 146 H (75-99) mg/dL Calcium (8.4-10.2) mg/dL Phosphorus (2.5-4.5) mg/dL AST (14-36) U/L ALT (4-34) U/L Alkaline Phosphatase (38-126) U/L Ammonia (<30) umol/L Lactate Dehydrogenase (313-618) U/L C-Reactive Protein (<10.0) mg/L Total Protein (6.3-8.2) g/dL Albumin (3.5-5.0) g/dL TSH (0.465-4.680) mIU/L Free T4 (0.78-2.19) ng/dL Urine RBC 8 H (0-5) /hpf Urine WBC 20 H (0-5) /hpf Hyaline Casts 3 H (0-2) /lpf Urine Mucus Moderate H (None) /hpf 01/23/20 01/23/20 01/23/20 Range/Units 21:15 22:10 23:56 WBC (3.8-10.6) k/uL RBC (3.80-5.40) m/uL Hgb (11.4-16.0) gm/dL MCHC (31.0-37.0) g/dL Plt Count (150-450) k/uL Neutrophils # (1.3-7.7) k/uL Lymphocytes # (1.0-4.8) k/uL INR (<1.2) APTT 21.9 L (22.0-30.0) sec D-Dimer (<0.60) mg/L FEU ABG pH 7.18 L* (7.35-7.45) ABG pCO2 (35-45) mmHg ABG pO2 (83-108) mmHg ABG HCO3 16 L (21-25) mmol/L ABG Total CO2 17 L (19-24) mmol/L Chloride (98-107) mmol/L Carbon Dioxide (22-30) mmol/L BUN (7-17) mg/dL Creatinine (0.52-1.04) mg/dL Glucose (74-99) mg/dL POC Glucose (mg/dL) 207 H (75-99) mg/dL Calcium (8.4-10.2) mg/dL Phosphorus (2.5-4.5) mg/dL AST (14-36) U/L ALT (4-34) U/L Alkaline Phosphatase (38-126) U/L Ammonia (<30) umol/L Lactate Dehydrogenase (313-618) U/L C-Reactive Protein (<10.0) mg/L Total Protein (6.3-8.2) g/dL Albumin (3.5-5.0) g/dL TSH (0.465-4.680) mIU/L Free T4 (0.78-2.19) ng/dL Urine RBC (0-5) /hpf Urine WBC (0-5) /hpf Hyaline Casts (0-2) /lpf Urine Mucus (None) /hpf 01/24/20 01/24/20 01/24/20 Range/Units 04:02 05:17 05:20 WBC 24.2 H (3.8-10.6) k/uL RBC (3.80-5.40) m/uL Hgb (11.4-16.0) gm/dL MCHC (31.0-37.0) g/dL Plt Count 130 L (150-450) k/uL Neutrophils # 22.3 H (1.3-7.7) k/uL Lymphocytes # (1.0-4.8) k/uL INR (<1.2) APTT (22.0-30.0) sec D-Dimer (<0.60) mg/L FEU ABG pH 7.19 L* (7.35-7.45) ABG pCO2 48 H (35-45) mmHg ABG pO2 82 L (83-108) mmHg ABG HCO3 18 L (21-25) mmol/L ABG Total CO2 (19-24) mmol/L Chloride (98-107) mmol/L Carbon Dioxide (22-30) mmol/L BUN (7-17) mg/dL Creatinine (0.52-1.04) mg/dL Glucose (74-99) mg/dL POC Glucose (mg/dL) 211 H (75-99) mg/dL Calcium (8.4-10.2) mg/dL Phosphorus (2.5-4.5) mg/dL AST (14-36) U/L ALT (4-34) U/L Alkaline Phosphatase (38-126) U/L Ammonia (<30) umol/L Lactate Dehydrogenase (313-618) U/L C-Reactive Protein (<10.0) mg/L Total Protein (6.3-8.2) g/dL Albumin (3.5-5.0) g/dL TSH (0.465-4.680) mIU/L Free T4 (0.78-2.19) ng/dL Urine RBC (0-5) /hpf Urine WBC (0-5) /hpf Hyaline Casts (0-2) /lpf Urine Mucus (None) /hpf 01/24/20 01/24/20 01/24/20 Range/Units 05:20 05:20 05:46 WBC (3.8-10.6) k/uL RBC (3.80-5.40) m/uL Hgb (11.4-16.0) gm/dL MCHC (31.0-37.0) g/dL Plt Count (150-450) k/uL Neutrophils # (1.3-7.7) k/uL Lymphocytes # (1.0-4.8) k/uL INR 1.2 H (<1.2) APTT (22.0-30.0) sec D-Dimer 11.22 H (<0.60) mg/L FEU ABG pH (7.35-7.45) ABG pCO2 (35-45) mmHg ABG pO2 (83-108) mmHg ABG HCO3 (21-25) mmol/L ABG Total CO2 (19-24) mmol/L Chloride 108 H (98-107) mmol/L Carbon Dioxide 17 L (22-30) mmol/L BUN 48 H (7-17) mg/dL Creatinine 2.09 H (0.52-1.04) mg/dL Glucose 229 H (74-99) mg/dL POC Glucose (mg/dL) 225 H (75-99) mg/dL Calcium 6.0 L* (8.4-10.2) mg/dL Phosphorus 7.9 H (2.5-4.5) mg/dL AST 6680 H (14-36) U/L ALT 3512 H (4-34) U/L Alkaline Phosphatase 310 H (38-126) U/L Ammonia (<30) umol/L Lactate Dehydrogenase 78941 H (313-618) U/L C-Reactive Protein 248.2 H (<10.0) mg/L Total Protein 4.6 L (6.3-8.2) g/dL Albumin 2.1 L (3.5-5.0) g/dL TSH <0.015 L (0.465-4.680) mIU/L Free T4 >6.99 H (0.78-2.19) ng/dL Urine RBC (0-5) /hpf Urine WBC (0-5) /hpf Hyaline Casts (0-2) /lpf Urine Mucus (None) /hpf Microbiology - Last 24 Hours (Table) 01/22/20 22:28 Blood Culture - Preliminary Blood No Growth after 24 hours 01/23/20 01:36 Gram Stain - Preliminary Sputum Sputum Culture - Preliminary
--- NOTE | 2020-01-24 10:00 | ECHOF ---
Referral Reason:afib MEASUREMENTS -------- HEIGHT: 157.5 cm WEIGHT: 77.6 kg BP: 104/62 RVIDd: 3.9 cm (< 3.3) IVSd: 1.0 cm (0.6 - 1.1) LVIDd: 4.4 cm (3.9 - 5.3) LVPWd: 1.2 cm (0.6 - 1.1) IVSs: 1.3 cm LVIDs: 4.2 cm LVPWs: 1.1 cm Ao Diam: 2.9 cm (2.0 - 3.7) AV Cusp: 1.6 cm (1.5 - 2.6) LA Diam: 3.3 cm (2.7 - 3.8) MV EXCURSION: 14.924 mm (> 18.000) MV EF SLOPE: 49 mm/s (70 - 150) EPSS: 0.9 cm MV E Oliver: 0.43 m/s MV DecT: 166 ms MV A Oliver: 0.75 m/s MV E/A Ratio: 0.57 RAP: 20.00 mmHg RVSP: 55.14 mmHg FINDINGS -------- This was a technically adequate study. The left ventricular size is normal. There is borderline concentric left ventricular hypertrophy. There is severe global hypokinesis of LV . Overall left ventricular systolic function is moderate- severely impaired with, an EF between 30 - 35 %. The right ventricle is moderately enlarged. The left atrial size is normal. The right atrial size is normal. Interatrial and interventricular septum intact. The aortic valve is trileaflet and appears structurally normal. The mitral valve is normal. Mild mitral regurgitation is present. The tricuspid valve appears structurally normal. Moderate to severe tricuspid regurgitation present . There is moderate pulmonary hypertension. The right ventricular systolic pressure, as measured by Doppler, is 55.14mmHg. There is no pulmonic regurgitation present. The aortic root size is normal. The inferior vena cava is dilated with no significant inspiratory collapse which is consistent estima jean pierre right atrial pressure of >20 mmHg. There is no pericardial effusion. CONCLUSIONS -------- 1. The left ventricular size is normal. 2. There is borderline concentric left ventricular hypertrophy. 3. There is severe global hypokinesis of LV . 4. Overall left ventricular systolic function is moderate-severely impaired with, an EF between 30 - 35 %. 5. The right ventricle is moderately enlarged. 6. Mild mitral regurgitation is present. 7. Moderate to severe tricuspid regurgitation present. 8. There is moderate pulmonary hypertension. 9. The right ventricular systolic pressure, as measured by Doppler, is 55.14mmHg. 10. The inferior vena cava is dilated with no significant inspiratory collapse which is consistent es timated right atrial pressure of >20 mmHg. GRAPHIC DESIGN MANAGER: Deirdre Mohan RDCS
[2020-01-24] MEDS ORDERED: AMIODARONE 300 MG in DEXTROSE 5% IN WATER 250 ML IV SCH ×2 (10:30)
[2020-01-24] MEDS ORDERED: HYDROmorphone 0.5 MG/0.5 ML SYRINGE IVP PRN (10:47)
[2020-01-24 10:55] VITALS: RESP 36
[2020-01-24] MEDS: CHLORHEXIDINE GLUCONATE 15 ML CUP MUCOUS MEM SCH (11:16)
[2020-01-24] MEDS: methIMAzole 5 MG TAB PO SCH ×2 (11:17→17:00)
[2020-01-24] MEDS: ASCORBIC ACID 500 MG TAB PO SCH (11:18)
[2020-01-24] MEDS: DEXTROSE 5% IN WATER 1,000 ML with SODIUM BICARB (1 MEQ/ML) 150 ML IV SCH (11:18)
[2020-01-24] MEDS: PANTOPRAZOLE 40 MG/10 ML VIAL IVP SCH (11:18)
[2020-01-24] MEDS: SODIUM CHLORIDE 0.9% 1,000 ML IV SCH (11:18)
[2020-01-24 11:24] LABS: Glucose,Whole Blood 198 mg/dL (75-99)
[2020-01-24] MEDS: NOREPINEPHRINE 32 MG in SODIUM CHLORIDE 0.9% 218 ML IV SCH (12:06)
--- NOTE | 2020-01-24 12:46 | PN ---
PROGRESS NOTE PULMONARY/CRITICAL CARE PROGRESS NOTE: DATE OF SERVICE: January 24, 2020 Critical care time 34 minutes. HISTORY: This is a 69-year-old female with a history of hypertension, hyperlipidemia, possible COPD, who apparently arrived in the emergency room on the 21 of January. She apparently was noted to have atrial fibrillation with RVR. She was worked up in the emergency room, was also found to have a right lower extremity DVT, possible community- acquired pneumonia, and impending respiratory failure. Because of haja respiratory failure, she was intubated on January 23, 2020. Anyway, the patient finds herself currently on the mechanical ventilator and in poor shape. She is on the volume assist- control mode rate of 28, tidal volume 470, FiO2 50%, and a PEEP of 5. Blood gases show pO2 of 82, pCO2 48, and pH 7.18. These blood gases consistent with respiratory and metabolic acidosis. She is on a number of drips including esmolol at 10 mcg/kg per minute, amiodarone at 1 mg/minutes, heparin via weight based protocol, 3 amps of sodium bicarbonate and D5W at 75 mL an hour, Nimbex of 0.25 mics per minute, Diprivan at 75 mics per minute, norepinephrine at 45 mcg/minute and vasopressin 0.03 units/minute. With that, she has had a borderline blood pressure. Apparently, the daughter did call in this morning to talk to Shekhar, the nurse and made the patient is a DO NOT RESUSCITATE. PHYSICAL EXAMINATION: Her current vital signs are reviewed. Temperature is 98.7, heart rate 98.5, respiratory rate 36, blood pressure 101/32 mean 55, saturations between 91% and 93%. Based on the blood gases, the rate was increased to 36 and tidal volume was dropped down to 370. Currently, she is sedated and paralyzed. HEENT: Examination is grossly unremarkable. She has an orally placed endotracheal tube and NG tube. NECK is supple. Full range of motion. No adenopathy or thyromegaly. Neck veins are flat. CARDIOVASCULAR: Examination reveals regular rhythm and rate. Heart rate 85. S1, S2 normal. Heart sounds are very distant. LUNGS: Reveal diffuse coarse rhonchi bilaterally. No wheezes or crackles. Breath sounds equal bilaterally. ABDOMEN: Soft. No bowel sounds. EXTREMITIES are intact. Significant lower extremity edema noted. SKIN: Without rash. NEUROLOGIC: Examination could not be properly assessed. LABS: Reviewed. White count 24.2, hemoglobin 12.6, hematocrit 30.2, platelet count 130,000. PT/INR were 11.9 and 1.2 PTT 22.6, D-dimer 11.22. Blood gases have been noted. Sodium 138, potassium 3.7, chloride 108, CO2 17, anion gap is 13, BUN and creatinine were 48 and 2.09. Her calcium is 6, phosphorus 7.9, bilirubin 1.3, AST is 6680, ALT 3512, alkaline phosphatase 310, LDH 12,924, C-reactive protein 248, total protein 4.6. TSH is less than 0.015 and free T4 6.99 again suggesting hyperthyroidism. Chest x-ray shows bilateral pleural effusions, right greater than left with some basilar atelectasis and consolidation, more so on the left. Microbiology is pending or negative. MEDICATIONS: Reviewed. Currently, the patient is on ascorbic acid, azithromycin, Pulmicort, Cardizem, Rocephin, chlorhexidine, Nimbex, esmolol, IV heparin, insulin, Dilaudid, updrafts, Tapazole, Narcan norepinephrine, Protonix, propofol bicarb drip and vasopressin. ASSESSMENT: 1. Acute hypoxemic respiratory failure requiring intubation on January 22, likely multifactorial, in part related to atrial fibrillation with RVR, CHF, and community- acquired pneumonia. 2. Profound hypotension, currently on norepinephrine at 45 mics minute, vasopressin 0.03 units/minute. 3. Acute septic shock. 4. Acute thyroid storm. 5. Atrial fibrillation with RVR secondary to hyperthyroidism. 6. Congestive hepatopathy. 7. Acute kidney injury. 8. Active start acute kidney injury, likely secondary to ATN secondary to hypotension. 9. History of hypertension. 10.History of chronic obstructive pulmonary disease. 11.Right femoral deep vein thrombosis. PLAN: Currently, the patient is on multiple drips as mentioned, including sodium bicarbonate drip, nimbex, propofol, norepinephrine, vasopressin, esmolol, amiodarone, and IV heparin. We will try to clarify with Cardiology if one or more of cardiotonic agents can be discontinued. The daughter did call and speak to the nurse Shekhar Strickland and made the patient a DNR. She is coming in to see the patient sometime today. Continue with GI and DVT prophylaxis. Additional recommendations and suggestions are forthcoming. If she is going to continue to be supported, and not made comfort measures, we will need to start enteral nutrition. Additional recommendations and suggestions are forthcoming. Prognosis is very poor. Vent settings include a rate increased to 36 and tidal volume dropped down to 370. Additional recommendations and suggestions are forthcoming. Prognosis is very poor. Critical care time 34 minutes. ZARI / SUZETTEN: [id number] / MTDD
[2020-01-24 13:48] LABS: Hepatitis A Antibody IgM Non-Reactive (Non-Reactive); Hepatitis B Core IgM Non-Reactive (Non-Reactive); Hepatitis B Surface Antigen Non-Reactive (Non-Reactive); Hepatitis C IgG Antibody Non-Reactive (Non-Reactive)
--- NOTE | 2020-01-24 15:17 | P.PN ---
Subjective Progress Note Date: 01/24/20 This is a 61-year-old female admitted with acute hypoxic respiratory failure, vent dependent, atrial fibrillation with RVR, CHF, pneumonia, Acute septic shock, right leg DVT and multiple other medical issues. Coronavirus not detected .Remains vent dependent with FiO2 50%/+5 of PEEP. Chest x-ray reporting moderate right and small left pleural effusions with adjacent atelectasis/consolidation prominent on the right, increasing on the left. Maintained on heparin, Levophed, vasopressin, diprovan, Nimbex, bicarb, amiodarone, esmolol drips with borderline hypotension. During the night developed nonsustained SVT. ABGs noted. Daughter has changed patient's CODE STATUS to DO NOT RESUSCITATE. Afebrile, WBC up to 24.2. INR 1.2 elevated d- dimer. Renal function worsening, BUN 48, creatinine 2.09. Worsening LFTs,ultrasound reporting thickened gallbladder wall,pericholeycystic fluid suggestive of cholecystitis. Worsened LDH,CRP, calcium,. TSH less than 0.015, free T4 greater than 6.99. Hepatitis serology nonreactive. Echo reporting severe global hypokinesis with LV, moderately severely impaired LV function with EF between 30 and 35%, moderate to severe tricuspid regurgitation, moderate pulm onary hypertension. Objective - Vital Signs Vital signs: Vital Signs Temp 98.9 F 01/24/20 12:00 Pulse 84 01/24/20 13:00 Resp 36 H 01/24/20 13:00 BP 97/57 01/24/20 13:00 Pulse Ox 92 L 01/24/20 13:00 Intake & Output 01/23/20 01/24/20 01/24/20 18:59 06:59 18:59 Intake Total 3633.774 1455.249 682.934 Output Total 180 219 0 Balance 3453.774 1236.249 682.934 Weight 77.8 kg Intake: IV 2760 953 616 0.9 NaCl Art Line Flush 33 21 Dextrose 5% in Water 1, 550 800 525 000 ml @ 75 mls/hr IV . [id number] [facility] with Sodium Bicarb (1 Meq/ml) 150 ml Rx#:[id number] Sodium Chloride 0.9% 1, 110 120 70 000 ml @ 10 mls/hr IV . Q24H [facility] Rx#:[id number] Sodium Chloride 0.9% 1, 100 000 ml @ 100 mls/hr IV . Q10H [facility] Rx#:[id number] Sodium Chloride 0.9% 1, 2000 000 ml @ 999 mls/hr IV . Q1H1M [facility] Rx#:[id number] Intake, IV Titration 673.774 502.249 66.934 Amount Cisatracurium 200 mg In 28.805 Sodium Chloride 0.9% 180 ml @ 1 MCG/KG/MIN 4.392 mls/hr IV .Q24H [facility] Rx#: [id number] Esmolol in Sodium 250 Chloride Pmx 2.5 gm In Saline 1 250ml.bag @ 50 MCG/KG/MIN 20.82 mls/hr IV .Q12H1M [facility] Rx#: [id number] Heparin Sod,Pork in 0.45% 182.383 36.608 NaCl 25,000 unit In 0.45 % NaCl 1 250ml.bag @ 18 UNITS/KG/HR 12.492 mls/hr IV .Q20H1M [facility] Rx#: [id number] Norepinephrine 32 mg In 15.304 72.136 66.934 Sodium Chloride 0.9% 218 ml @ 0.05 MCG/KG/MIN 1. 716 mls/hr IV .Q24H [facility] Rx#:[id number] Norepinephrine 4 mg In 122.061 Sodium Chloride 0.9% 250 ml @ 0.05 MCG/KG/MIN 13. 945 mls/hr IV .[id number] [facility] Rx#:[id number] propofoL 1,000 mg In 104.026 364.700 Empty Bag 1 bag @ Titrate IV .Q0M [facility] Rx#: [id number] Oral 100 Tube Feeding 100 Output: Urine 180 219 0 Other: Voiding Method Indwelling Catheter Indwelling Catheter Indwelling Catheter ABP, PAP, CO, CI - Last Documented Arterial Blood Pressure 99/59 - Exam PHYSICAL EXAM: VITAL SIGNS: [As above] GENERAL: Lying in bed, sedated, paralyzed, on mechanical ventilation HEENT: Conjunctivae normal. eyes normal. NECK: No JVD. No thyroid enlargement. CARDIOVASCULAR: Distant S1, S2 regular. Positive systolic murmur. RESPIRATION: Breath sounds diminished in the bases. Coarse scattered rhonchi, no crackles. No wheezing. ABDOMEN: Soft, nontender . No guarding. no masses palpable. Bowel sounds heard. LEGS: Positive edema PSYCHIATRY: Alert and oriented X3, mood and affect normal. NERVOUS SYSTEM: Unable to assess, as patient sedated, paralyzed, on mechanical ventilation Skin: no rash, mottling of fingers, delayed capillary refill Microbiology 01/23/20 01:36 Sputum Gram Stain - Preliminary 01/23/20 01:36 Sputum Sputum Culture - Preliminary Gram Neg Bacilli 01/22/20 22:28 Blood Blood Culture - Preliminary No Growth after 24 hours - Labs CBC & Chem 7: 01/24/20 05:20 01/24/20 05:20 Labs: Abnormal Lab Results - Last 24 Hours (Table) 01/23/20 01/23/20 01/23/20 Range/Units 15:16 15:40 19:38 WBC 16.5 H (3.8-10.6) k/uL RBC 3.72 L (3.80-5.40) m/uL Hgb 11.1 L (11.4-16.0) gm/dL MCHC 30.3 L (31.0-37.0) g/dL Plt Count 115 L (150-450) k/uL Neutrophils # 14.9 H (1.3-7.7) k/uL Lymphocytes # 0.8 L (1.0-4.8) k/uL INR (<1.2) APTT (22.0-30.0) sec D-Dimer (<0.60) mg/L FEU ABG pH (7.35-7.45) ABG pCO2 (35-45) mmHg ABG pO2 (83-108) mmHg ABG HCO3 (21-25) mmol/L ABG Total CO2 (19-24) mmol/L Chloride (98-107) mmol/L Carbon Dioxide (22-30) mmol/L BUN (7-17) mg/dL Creatinine (0.52-1.04) mg/dL Glucose (74-99) mg/dL POC Glucose (mg/dL) 146 H (75-99) mg/dL Calcium (8.4-10.2) mg/dL Phosphorus (2.5-4.5) mg/dL AST (14-36) U/L ALT (4-34) U/L Alkaline Phosphatase (38-126) U/L Lactate Dehydrogenase (313-618) U/L C-Reactive Protein (<10.0) mg/L Total Protein (6.3-8.2) g/dL Albumin (3.5-5.0) g/dL TSH (0.465-4.680) mIU/L Free T4 (0.78-2.19) ng/dL Urine RBC 8 H (0-5) /hpf Urine WBC 20 H (0-5) /hpf Hyaline Casts 3 H (0-2) /lpf Urine Mucus Moderate H (None) /hpf 01/23/20 01/23/20 01/23/20 Range/Units 21:15 22:10 23:56 WBC (3.8-10.6) k/uL RBC (3.80-5.40) m/uL Hgb (11.4-16.0) gm/dL MCHC (31.0-37.0) g/dL Plt Count (150-450) k/uL Neutrophils # (1.3-7.7) k/uL Lymphocytes # (1.0-4.8) k/uL INR (<1.2) APTT 21.9 L (22.0-30.0) sec D-Dimer (<0.60) mg/L FEU ABG pH 7.18 L* (7.35-7.45) ABG pCO2 (35-45) mmHg ABG pO2 (83-108) mmHg ABG HCO3 16 L (21-25) mmol/L ABG Total CO2 17 L (19-24) mmol/L Chloride (98-107) mmol/L Carbon Dioxide (22-30) mmol/L BUN (7-17) mg/dL Creatinine (0.52-1.04) mg/dL Glucose (74-99) mg/dL POC Glucose (mg/dL) 207 H (75-99) mg/dL Calcium (8.4-10.2) mg/dL Phosphorus (2.5-4.5) mg/dL AST (14-36) U/L ALT (4-34) U/L Alkaline Phosphatase (38-126) U/L Lactate Dehydrogenase (313-618) U/L C-Reactive Protein (<10.0) mg/L Total Protein (6.3-8.2) g/dL Albumin (3.5-5.0) g/dL TSH (0.465-4.680) mIU/L Free T4 (0.78-2.19) ng/dL Urine RBC (0-5) /hpf Urine WBC (0-5) /hpf Hyaline Casts (0-2) /lpf Urine Mucus (None) /hpf 01/24/20 01/24/20 01/24/20 Range/Units 04:02 05:17 05:20 WBC 24.2 H (3.8-10.6) k/uL RBC (3.80-5.40) m/uL Hgb (11.4-16.0) gm/dL MCHC (31.0-37.0) g/dL Plt Count 130 L (150-450) k/uL Neutrophils # 22.3 H (1.3-7.7) k/uL Lymphocytes # (1.0-4.8) k/uL INR (<1.2) APTT (22.0-30.0) sec D-Dimer (<0.60) mg/L FEU ABG pH 7.19 L* (7.35-7.45) ABG pCO2 48 H (35-45) mmHg ABG pO2 82 L (83-108) mmHg ABG HCO3 18 L (21-25) mmol/L ABG Total CO2 (19-24) mmol/L Chloride (98-107) mmol/L Carbon Dioxide (22-30) mmol/L BUN (7-17) mg/dL Creatinine (0.52-1.04) mg/dL Glucose (74-99) mg/dL POC Glucose (mg/dL) 211 H (75-99) mg/dL Calcium (8.4-10.2) mg/dL Phosphorus (2.5-4.5) mg/dL AST (14-36) U/L ALT (4-34) U/L Alkaline Phosphatase (38-126) U/L Lactate Dehydrogenase (313-618) U/L C-Reactive Protein (<10.0) mg/L Total Protein (6.3-8.2) g/dL Albumin (3.5-5.0) g/dL TSH (0.465-4.680) mIU/L Free T4 (0.78-2.19) ng/dL Urine RBC (0-5) /hpf Urine WBC (0-5) /hpf Hyaline Casts (0-2) /lpf Urine Mucus (None) /hpf 01/24/20 01/24/20 01/24/20 Range/Units 05:20 05:20 05:46 WBC (3.8-10.6) k/uL RBC (3.80-5.40) m/uL Hgb (11.4-16.0) gm/dL MCHC (31.0-37.0) g/dL Plt Count (150-450) k/uL Neutrophils # (1.3-7.7) k/uL Lymphocytes # (1.0-4.8) k/uL INR 1.2 H (<1.2) APTT (22.0-30.0) sec D-Dimer 11.22 H (<0.60) mg/L FEU ABG pH (7.35-7.45) ABG pCO2 (35-45) mmHg ABG pO2 (83-108) mmHg ABG HCO3 (21-25) mmol/L ABG Total CO2 (19-24) mmol/L Chloride 108 H (98-107) mmol/L Carbon Dioxide 17 L (22-30) mmol/L BUN 48 H (7-17) mg/dL Creatinine 2.09 H (0.52-1.04) mg/dL Glucose 229 H (74-99) mg/dL POC Glucose (mg/dL) 225 H (75-99) mg/dL Calcium 6.0 L* (8.4-10.2) mg/dL Phosphorus 7.9 H (2.5-4.5) mg/dL AST 6680 H (14-36) U/L ALT 3512 H (4-34) U/L Alkaline Phosphatase 310 H (38-126) U/L Lactate Dehydrogenase 24552 H (313-618) U/L C-Reactive Protein 248.2 H (<10.0) mg/L Total Protein 4.6 L (6.3-8.2) g/dL Albumin 2.1 L (3.5-5.0) g/dL TSH <0.015 L (0.465-4.680) mIU/L Free T4 >6.99 H (0.78-2.19) ng/dL Urine RBC (0-5) /hpf Urine WBC (0-5) /hpf Hyaline Casts (0-2) /lpf Urine Mucus (None) /hpf 01/24/20 Range/Units 11:23 WBC (3.8-10.6) k/uL RBC (3.80-5.40) m/uL Hgb (11.4-16.0) gm/dL MCHC (31.0-37.0) g/dL Plt Count (150-450) k/uL Neutrophils # (1.3-7.7) k/uL Lymphocytes # (1.0-4.8) k/uL INR (<1.2) APTT (22.0-30.0) sec D-Dimer (<0.60) mg/L FEU ABG pH (7.35-7.45) ABG pCO2 (35-45) mmHg ABG pO2 (83-108) mmHg ABG HCO3 (21-25) mmol/L ABG Total CO2 (19-24) mmol/L Chloride (98-107) mmol/L Carbon Dioxide (22-30) mmol/L BUN (7-17) mg/dL Creatinine (0.52-1.04) mg/dL Glucose (74-99) mg/dL POC Glucose (mg/dL) 198 H (75-99) mg/dL Calcium (8.4-10.2) mg/dL Phosphorus (2.5-4.5) mg/dL AST (14-36) U/L ALT (4-34) U/L Alkaline Phosphatase (38-126) U/L Lactate Dehydrogenase (313-618) U/L C-Reactive Protein (<10.0) mg/L Total Protein (6.3-8.2) g/dL Albumin (3.5-5.0) g/dL TSH (0.465-4.680) mIU/L Free T4 (0.78-2.19) ng/dL Urine RBC (0-5) /hpf Urine WBC (0-5) /hpf Hyaline Casts (0-2) /lpf Urine Mucus (None) /hpf Microbiology - Last 24 Hours (Table) 01/23/20 01:36 Gram Stain - Preliminary Sputum Sputum Culture - Preliminary Gram Neg Bacilli 01/22/20 22:28 Blood Culture - Preliminary Blood No Growth after 24 hours Assessment and Plan Assessment: Acute septic shock, multisystem, hypotensive- pressor dependent, elevated LFTs, worsening renal function Respiratory and metabolic acidosis, on bicarb drip Acute hypoxic respiratory failure, vent dependent Acute CHF, systolic dysfunction, EF 30-35%. Severe global hypokinesis. Acute community-acquired pneumonia, coronavirus not detected Right proximal femoral to proximal calf DVT Congestive hepatopathy,worsening LFTs, ultrasound reporting potential cholecystitis Acute thyroid storm ,Hyperthyroidism on Tapazole Atrial fibrillation with RVR Nonsustained SVT Moderate to severe tricuspid regurgitation Moderate pulmonary hypertension Acute renal failure, related to sepsis secondary to ATN, hypotension COPD No code, no CPR, no reintubation Plan: Continue on current medication regime ,monitoring and symptomatic treatment. Remains on multiple drips as mentioned above, vent dependent. Amiodarone drip discontinued. Antibiotics as per ID.Follow closely with multiple consults. CODE STATUS recently changed to no code, family meeting pend ing. Prognosis guarded to multiple complex medical issues. Follow closely with kitchen lead and multiple consults closely. The impression and plan of care has been dictated as directed. : I performed a history and examination of this patient, discussed the same with the dictator. I agree with the dictator's note ,documented as a scribe. Any additional findings or plans will be noted.
--- NOTE | 2020-01-24 16:37 | PN ---
PROGRESS NOTE Patient is seen for followup for acute kidney injury, CHF, volume overload. She is currently maintained on Lasix drip. Urine output has been low at 0 to 5 mL/hour. Patient also had developed SVT and is currently maintained on amiodarone drip. She remains on Levophed as well along with Cardizem drip, which she had been on previously, currently on esmolol. Vasopressin is also on board. Family has been talked to regarding overall general condition. Currently patient is NO CODE, NO CPR. Given the ongoing volume overload, we would need to consider renal replacement therapy with worsening renal failure. However, in view of underlying hypotension and cardiac instability, patient is not an ideal candidate for renal replacement therapy at this point. On examination, patient is sedated. She is on the vent. Blood pressure this morning was 101/32, heart rate about 85 per minute. Patient is afebrile. EXAMINATION OF THE HEART: S1 and S2. EXAMINATION OF LUNGS: Decreased breath sounds at bases. Bilateral breath sounds are heard. ABDOMEN: Soft. Examination of lower extremities shows edema 2+ bilaterally. RD [employer] exam cannot be assessed. Labs show sodium of 138, potassium 3.7, chloride 108. CO2 is 1. BUN of 48, creatinine 2.0, calcium 6.0. ASSESSMENT: 1. Acute kidney injury, acute tubular necrosis, currently oliguric with ongoing volume overload and hypotension. Not an ideal candidate for renal replacement therapy, given the ongoing cardiac instability and hypotension. Continue to use loop diuretics. 2. Atrial fibrillation with rapid ventricular response, maintained on esmolol drip, status post amiodarone. 3. Profound hypotension associated with sepsis and cardiac arrhythmias and cardiomyopathy. 4. Shock liver. 5. Right femoral deep venous thrombosis. 6. Acute thyroid storm. PLAN: Continue pressors. The patient is not an ideal candidate for renal replacement therapy. She is currently maintained on the vent. Once patient is more hemodynamically stable, we can reconsider dialysis. Overall prognosis is guarded. MMODL / IJN: [id number] /
[2020-01-24] MEDS: SODIUM CHLORIDE 0.9% 150 ML with VASOPRESSIN 60 UNIT IV SCH ×2 (16:46)
[2020-01-24] MEDS: HEPARIN SOD,PORK IN 0.45% NACL 25,000 UNIT in 0.45% NACL 1 250ML.BAG IV SCH (16:58)
[2020-01-24 17:50] LABS: Partial Thromboplastin Time 58.2 sec (22.0-30.0)
[2020-01-24 17:51] LABS: Glucose,Whole Blood 128 mg/dL (75-99)
[2020-01-24 18:20] VITALS: BP 109/24; PULSE 43; TEMP 98.8
--- NOTE | 2020-01-24 19:51 | P.CONS ---
History of Present Illness - Reason for Consult Consult date: 01/24/20 abnormal labs Requesting physician: Esteban Mo - Chief Complaint shortness of breath - History of Present Illness Mrs. Glynn is a 69-year-old female who has a known medical history of hypertension, dyslipidemia, and COPD. She presented to [facility] Emergency with complaints of progressive dyspnea. Imaging showed consistent with RLL pnemonia. No pulmonary embolism noted on CT. Ultrasound doppler of LE did reveal RLE DVT she also showed atrial fibrillation with RVR and therefore a heparin drip has been initiated. She was found to be hypoxic and tachypneic therefore she was intubated and placed on ventilator support. She also was found to have significantly low TSH and elevated T4. Her PTT was increased and she had nasal bleeding, heparin was held and restarted without bolus per protocol. Patient was seen in ICU, daughter at bedside. She is bradycardic, hypotensive, BLE edema right >left. We discussed the progressing situation, daughter realistic and understanding. emotional support given. Review of Systems ROS unobtainable: due to endotracheal tube Past Medical History Past Medical History: Atrial Fibrillation, COPD, Hypertension History of Any Multi-Drug Resistant Organisms: None Reported Past Surgical History: Unable to Obtain Past Anesthesia/Blood Transfusion Reactions: Unable to Obtain Past Psychological History: No Psychological Hx Reported Smoking Status: Former smoker Past Drug Use History: None Reported Medications and Allergies Home Medications Medication Instructions Recorded Confirmed Type Albuterol Sulfate [Ventolin HFA] 2 puff INHALATION RT-QID PRN 01/22/20 01/22/20 History Alendronate Sodium [Fosamax] 70 mg PO LOYOLA 01/22/20 01/22/20 History Ascorbic Acid [Vitamin C] 1,000 mg PO DAILY 01/22/20 01/22/20 History Aspirin 325 mg PO HS 01/22/20 01/22/20 History Atorvastatin Calcium [Lipitor] 80 mg PO HS 01/22/20 01/22/20 History Celecoxib [CeleBREX] 200 mg PO DAILY 01/22/20 01/22/20 History Famotidine 20 mg PO BID PRN 01/22/20 01/22/20 History Fluticasone Nasal [place] [Flonase 1 spray EA NOSTRIL DAILY PRN 01/22/20 01/22/20 History Nasal [place]] Fluticasone/Vilanterol [Breo 1 inhalation INHALATION RT-HS 01/22/20 01/22/20 History Ellipta 200-25 Mcg INH] Furosemide [Lasix] 20 mg PO DAILY 01/22/20 01/22/20 History Ibuprofen 800 mg PO BID PRN 01/22/20 01/22/20 History Loperamide [Imodium] 2 mg PO QID PRN 01/22/20 01/22/20 History Potassium Gluconate 99 mg PO HS 01/22/20 01/22/20 History Umeclidinium [place] [Incruse 1 puff INHALATION RT-DAILY 01/22/20 01/22/20 History Ellipta] amLODIPine [Norvasc] 10 mg PO DAILY 01/22/20 01/22/20 History lisinopriL 40 mg PO DAILY 01/22/20 01/22/20 History Allergies Allergy/AdvReac Type Severity Reaction Status Date / Time prednisone Allergy Rash/Hives Verified 01/22/20 21:55 Physical Exam Vitals: Vital Signs Temp Pulse Resp BP Pulse Ox 01/24/20 13:00 84 36 H 97/57 92 L 01/24/20 12:00 98.9 F 84 36 H 104/65 90 L 01/24/20 11:51 85 01/24/20 11:35 85 01/24/20 11:00 87 36 H 104/30 92 L 01/24/20 10:00 89 36 H 101/32 91 L 01/24/20 09:00 90 36 H 114/39 93 L 01/24/20 08:17 92 01/24/20 08:00 98.7 F 90 36 H 87/33 93 L 01/24/20 07:50 93 01/24/20 07:00 86 28 H 66/38 95 01/24/20 06:00 146 H 28 H 132/94 94 L 01/24/20 05:00 151 H 28 H 117/71 93 L 01/24/20 04:16 172 H 01/24/20 04:00 97.6 F 98 28 H 121/73 95 01/24/20 03:58 174 H 01/24/20 03:00 98 28 H 114/70 01/24/20 02:00 98 28 H 114/64 01/24/20 01:03 105 H 01/24/20 01:00 96 28 H 113/66 96 01/24/20 00:29 111 H 01/24/20 00:00 96.9 F L 96 28 H 106/57 95 01/23/20 23:20 99 28 H 126/63 95 01/23/20 23:00 101 H 28 H 120/63 01/23/20 22:00 101 H 28 H 89/63 01/23/20 21:00 92 28 H 113/65 96 01/23/20 20:00 97.7 F 93 28 H 113/66 96 01/23/20 19:25 90 28 H 01/23/20 19:11 93 35 H 01/23/20 19:00 93 34 H 99 01/23/20 18:00 96 36 H 96 01/23/20 17:00 96 34 H 97 01/23/20 16:06 93 34 H 01/23/20 16:00 97.4 F L 91 28 H 100 01/23/20 15:49 92 34 H 01/23/20 15:00 82 37 H 97 Intake and Output 01/23/20 01/24/20 01/24/20 22:59 06:59 14:59 Intake Total 993.029 3707.738 682.934 Output Total 287 102 0 Balance 459.815 961.738 682.934 Intake: IV 489 704 616 0.9 NaCl Art Line Flush 9 24 21 Dextrose 5% in Water 1, 400 600 525 000 ml @ 75 mls/hr IV . [id number] ELIANE with Sodium Bicarb (1 Meq/ml) 150 ml Rx#:[id number] Sodium Chloride 0.9% 1, 80 80 70 000 ml @ 10 mls/hr IV . Q24H COUNTS INCLUDE 234 BEDS AT THE [facility] Rx#:[id number] Intake, IV Titration 157.815 359.738 66.934 Amount Cisatracurium 200 mg In 28.805 Sodium Chloride 0.9% 180 ml @ 1 MCG/KG/MIN 4.392 mls/hr IV .Q24H COUNTS INCLUDE 234 BEDS AT THE [facility] Rx#: [id number] Heparin Sod,Pork in 0.45% 0 36.608 NaCl 25,000 unit In 0.45 % NaCl 1 250ml.bag @ 18 UNITS/KG/HR 12.492 mls/hr IV .Q20H1M ELIANE Rx#: [id number] Norepinephrine 32 mg In 57.815 29.625 66.934 Sodium Chloride 0.9% 218 ml @ 0.05 MCG/KG/MIN 1. 716 mls/hr IV .Q24H ELIANE Rx#:[id number] propofoL 1,000 mg In 100 264.700 Empty Bag 1 bag @ Titrate IV .Q0M ELIANE Rx#: [id number] Tube Feeding 100 Output: Urine 287 102 0 Other: Voiding Method Indwelling Catheter Indwelling Catheter Indwelling Catheter Weight 77.8 kg ABP, PAP, CO, CI - Last 8 Hours Arterial Blood Pressure 99/59 Arterial Blood Pressure 94/57 Arterial Blood Pressure 96/56 Arterial Blood Pressure 95/58 Arterial Blood Pressure 96/60 Arterial Blood Pressure 113/63 Arterial Blood Pressure 104/62 intubated NAD abnormal Rate and Rhythm BLE edema 2+ and generalized R>L No rash No increased respiratory effort Pale/greyish. Mottling on hands and knees Results CBC & Chem 7: 01/24/20 05:20 01/24/20 05:20 Labs: Abnormal Lab Results - Last 24 Hours (Table) 01/23/20 01/23/20 01/23/20 Range/Units 15:16 15:40 19:38 WBC 16.5 H (3.8-10.6) k/uL RBC 3.72 L (3.80-5.40) m/uL Hgb 11.1 L (11.4-16.0) gm/dL MCHC 30.3 L (31.0-37.0) g/dL Plt Count 115 L (150-450) k/uL Neutrophils # 14.9 H (1.3-7.7) k/uL Lymphocytes # 0.8 L (1.0-4.8) k/uL INR (<1.2) APTT (22.0-30.0) sec D-Dimer (<0.60) mg/L FEU ABG pH (7.35-7.45) ABG pCO2 (35-45) mmHg ABG pO2 (83-108) mmHg ABG HCO3 (21-25) mmol/L ABG Total CO2 (19-24) mmol/L Chloride (98-107) mmol/L Carbon Dioxide (22-30) mmol/L BUN (7-17) mg/dL Creatinine (0.52-1.04) mg/dL Glucose (74-99) mg/dL POC Glucose (mg/dL) 146 H (75-99) mg/dL Calcium (8.4-10.2) mg/dL Ionized Calcium Sadiq (4.5-5.3) mg/dL Phosphorus (2.5-4.5) mg/dL AST (14-36) U/L ALT (4-34) U/L Alkaline Phosphatase (38-126) U/L Lactate Dehydrogenase (313-618) U/L C-Reactive Protein (<10.0) mg/L Total Protein (6.3-8.2) g/dL Albumin (3.5-5.0) g/dL TSH (0.465-4.680) mIU/L Free T4 (0.78-2.19) ng/dL Urine RBC 8 H (0-5) /hpf Urine WBC 20 H (0-5) /hpf Hyaline Casts 3 H (0-2) /lpf Urine Mucus Moderate H (None) /hpf 01/23/20 01/23/20 01/23/20 Range/Units 21:15 22:10 23:56 WBC (3.8-10.6) k/uL RBC (3.80-5.40) m/uL Hgb (11.4-16.0) gm/dL MCHC (31.0-37.0) g/dL Plt Count (150-450) k/uL Neutrophils # (1.3-7.7) k/uL Lymphocytes # (1.0-4.8) k/uL INR (<1.2) APTT 21.9 L (22.0-30.0) sec D-Dimer (<0.60) mg/L FEU ABG pH 7.18 L* (7.35-7.45) ABG pCO2 (35-45) mmHg ABG pO2 (83-108) mmHg ABG HCO3 16 L (21-25) mmol/L ABG Total CO2 17 L (19-24) mmol/L Chloride (98-107) mmol/L Carbon Dioxide (22-30) mmol/L BUN (7-17) mg/dL Creatinine (0.52-1.04) mg/dL Glucose (74-99) mg/dL POC Glucose (mg/dL) 207 H (75-99) mg/dL Calcium (8.4-10.2) mg/dL Ionized Calcium Sadiq (4.5-5.3) mg/dL Phosphorus (2.5-4.5) mg/dL AST (14-36) U/L ALT (4-34) U/L Alkaline Phosphatase (38-126) U/L Lactate Dehydrogenase (313-618) U/L C-Reactive Protein (<10.0) mg/L Total Protein (6.3-8.2) g/dL Albumin (3.5-5.0) g/dL TSH (0.465-4.680) mIU/L Free T4 (0.78-2.19) ng/dL Urine RBC (0-5) /hpf Urine WBC (0-5) /hpf Hyaline Casts (0-2) /lpf Urine Mucus (None) /hpf 01/24/20 01/24/20 01/24/20 Range/Units 04:02 05:17 05:20 WBC 24.2 H (3.8-10.6) k/uL RBC (3.80-5.40) m/uL Hgb (11.4-16.0) gm/dL MCHC (31.0-37.0) g/dL Plt Count 130 L (150-450) k/uL Neutrophils # 22.3 H (1.3-7.7) k/uL Lymphocytes # (1.0-4.8) k/uL INR (<1.2) APTT (22.0-30.0) sec D-Dimer (<0.60) mg/L FEU ABG pH 7.19 L* (7.35-7.45) ABG pCO2 48 H (35-45) mmHg ABG pO2 82 L (83-108) mmHg ABG HCO3 18 L (21-25) mmol/L ABG Total CO2 (19-24) mmol/L Chloride (98-107) mmol/L Carbon Dioxide (22-30) mmol/L BUN (7-17) mg/dL Creatinine (0.52-1.04) mg/dL Glucose (74-99) mg/dL POC Glucose (mg/dL) 211 H (75-99) mg/dL Calcium (8.4-10.2) mg/dL Ionized Calcium Sadiq (4.5-5.3) mg/dL Phosphorus (2.5-4.5) mg/dL AST (14-36) U/L ALT (4-34) U/L Alkaline Phosphatase (38-126) U/L Lactate Dehydrogenase (313-618) U/L C-Reactive Protein (<10.0) mg/L Total Protein (6.3-8.2) g/dL Albumin (3.5-5.0) g/dL TSH (0.465-4.680) mIU/L Free T4 (0.78-2.19) ng/dL Urine RBC (0-5) /hpf Urine WBC (0-5) /hpf Hyaline Casts (0-2) /lpf Urine Mucus (None) /hpf 01/24/20 01/24/20 01/24/20 Range/Units 05:20 05:20 05:46 WBC (3.8-10.6) k/uL RBC (3.80-5.40) m/uL Hgb (11.4-16.0) gm/dL MCHC (31.0-37.0) g/dL Plt Count (150-450) k/uL Neutrophils # (1.3-7.7) k/uL Lymphocytes # (1.0-4.8) k/uL INR 1.2 H (<1.2) APTT (22.0-30.0) sec D-Dimer 11.22 H (<0.60) mg/L FEU ABG pH (7.35-7.45) ABG pCO2 (35-45) mmHg ABG pO2 (83-108) mmHg ABG HCO3 (21-25) mmol/L ABG Total CO2 (19-24) mmol/L Chloride 108 H (98-107) mmol/L Carbon Dioxide 17 L (22-30) mmol/L BUN 48 H (7-17) mg/dL Creatinine 2.09 H (0.52-1.04) mg/dL Glucose 229 H (74-99) mg/dL POC Glucose (mg/dL) 225 H (75-99) mg/dL Calcium 6.0 L* (8.4-10.2) mg/dL Ionized Calcium Sadiq (4.5-5.3) mg/dL Phosphorus 7.9 H (2.5-4.5) mg/dL AST 6680 H (14-36) U/L ALT 3512 H (4-34) U/L Alkaline Phosphatase 310 H (38-126) U/L Lactate Dehydrogenase 97541 H (313-618) U/L C-Reactive Protein 248.2 H (<10.0) mg/L Total Protein 4.6 L (6.3-8.2) g/dL Albumin 2.1 L (3.5-5.0) g/dL TSH <0.015 L (0.465-4.680) mIU/L Free T4 >6.99 H (0.78-2.19) ng/dL Urine RBC (0-5) /hpf Urine WBC (0-5) /hpf Hyaline Casts (0-2) /lpf Urine Mucus (None) /hpf 01/24/20 01/24/20 Range/Units 11:23 12:30 WBC (3.8-10.6) k/uL RBC (3.80-5.40) m/uL Hgb (11.4-16.0) gm/dL MCHC (31.0-37.0) g/dL Plt Count (150-450) k/uL Neutrophils # (1.3-7.7) k/uL Lymphocytes # (1.0-4.8) k/uL INR (<1.2) APTT (22.0-30.0) sec D-Dimer (<0.60) mg/L FEU ABG pH (7.35-7.45) ABG pCO2 (35-45) mmHg ABG pO2 (83-108) mmHg ABG HCO3 (21-25) mmol/L ABG Total CO2 (19-24) mmol/L Chloride (98-107) mmol/L Carbon Dioxide (22-30) mmol/L BUN (7-17) mg/dL Creatinine (0.52-1.04) mg/dL Glucose (74-99) mg/dL POC Glucose (mg/dL) 198 H (75-99) mg/dL Calcium (8.4-10.2) mg/dL Ionized Calcium Sadiq 3.5 L* (4.5-5.3) mg/dL Phosphorus (2.5-4.5) mg/dL AST (14-36) U/L ALT (4-34) U/L Alkaline Phosphatase (38-126) U/L Lactate Dehydrogenase (313-618) U/L C-Reactive Protein (<10.0) mg/L Total Protein (6.3-8.2) g/dL Albumin (3.5-5.0) g/dL TSH (0.465-4.680) mIU/L Free T4 (0.78-2.19) ng/dL Urine RBC (0-5) /hpf Urine WBC (0-5) /hpf Hyaline Casts (0-2) /lpf Urine Mucus (None) /hpf Microbiology - Last 24 Hours (Table) 01/23/20 01:36 Gram Stain - Preliminary Sputum Sputum Culture - Preliminary Gram Neg Bacilli 01/22/20 22:28 Blood Culture - Preliminary Blood No Growth after [address] scan - chest: report reviewed Assessment and Plan Plan: Assessment and Recommendations: Acute Hypoxic Respiratory Failure: - Currently on ventilator - Under the care of ICU and Pulmonology - Likely secondary to pneumonia and SIRS - COVID negative Pneumonia: - Infectious Disease Following and managing antibiotics Abnormal Liver Function Tests: - Increased LFTs - Significant - Monitor coagulation factors - Likely secondary to hypotension shock liver Leukocytosis: - Reactive to inflammatory/Infectious process - Mostly neutrophilia Mild Thrombocytopenia: - Likely secondary to decompesated liver - Monitor for DIC Acute Renal Insufficiency: - Continuing to increase - Decreased Urine output - Nephrology following Hyperthyroidism: - Per primary team Hypocalcemia: - Secondary to sepsis and hyperthyroid Atrial Fib with RVR: - Per ICU Recommendations: - Monitor for DIC - Platelet count remains stable may anticoagulate, without bolus, - MOnitor closely for s/s bleeding. All questions answered to the best of my ability and emotional support given.
--- NOTE | 2020-01-24 19:59 | PN ---
PROGRESS NOTE DATE OF DICTATION: 01/24/2020 This patient is a 69-year-old pleasant white female who remains in the intensive care unit, intubated, sedated, on pressors. She was seen on consultation by Dr. Hill 2 days ago for acute ischemic hepatitis and elevated LFTs. The patient continues to remain hemodynamically unstable. Remains on 2 pressors. Remains on the vent and sedated. Urine output has significantly decreased. Family at the bedside, trying to make some decisions. PHYSICAL EXAMINATION: Sedated on the vent. Blood pressure 106/88, pulse rate 99 per minute and afebrile. HEENT examination unremarkable. Conjunctivae pink. Sclerae anicteric. NECK: No JVD or lymph node enlargement. CHEST: Decreased breath sounds bilaterally. HEART: Regular rate and rhythm. ABDOMEN: Soft. Bowel sounds are positive. NEUROLOGIC: Cannot be assessed, especially as patient is sedated. LABS: Labs from today show AST and ALT are elevated: AST 6680, ALT is 3512, alkaline phosphatase 310. Bilirubin is 1.3. WBC is 24.2, hemoglobin 12.6, and platelets 130. IMPRESSION: 1. Elevated liver function tests, which have worsened since yesterday, acute ischemic hepatitis from continued prolonged hypotension/hypoperfusion. Patient presently remains on pressors for the last 2 days. 2. Acute kidney injury. Nephrology following the patient closely. BUN is 48 and creatinine 2.09. 3. Septic shock, on broad-spectrum antibiotics. 4. Acute respiratory failure. Remains on the vent. 5. History of chronic obstructive pulmonary disease and deep venous thrombosis in the past. RECOMMENDATIONS: 1. Continue with symptomatic and supportive care. 2. Maintain hemodynamic stability. 3. Continue monitoring as per financial operations analyst. 4. In regards to the elevated LFTs, we will monitor them on a daily basis, and at this time avoid hepatotoxic medications. 5. Monitor labs closely. We will follow with you. Thank you for this consultation. MMODL / IJN: [id number] /
[2020-01-24 21:21] LABS: Hepatitis B Surface AB- Quant 116.3 mIU/mL; Hepatitis B Surface Antibody Reactive (Non-Reactive); Hepatitis B Surface Antigen Non-Reactive (Non-Reactive)
--- NOTE | 2020-01-24 22:52 | PN ---
PROGRESS NOTE DATE OF SERVICE: 01/24/2020 REASON FOR FOLLOWUP: Pneumonia. INTERVAL HISTORY: The patient is currently afebrile. The patient remains intubated on the vent. FiO2 is currently stable at 50%. Still requiring high-dose pressor support. No significant purulent secretions in the ET or any diarrhea per the nursing staff. PHYSICAL EXAMINATION: Blood pressure 105/30 with a pulse of 75, temperature 98.8. She is 97% on 50% FiO2. General description is an elderly female lying in bed in no distress. RESPIRATORY SYSTEM: Unlabored breathing with decreased breath sounds at the base. No wheeze. HEART: S1, S2. Regular rate and rhythm. ABDOMEN: Soft. No tenderness. EXTREMITIES: No edema of the feet. LABS: Hemoglobin is 12.6, white count 24.2, BUN of 48, creatinine 2.09. Liver enzymes significantly elevated. DIAGNOSTIC IMPRESSION AND PLAN: Patient with acute respiratory failure which is likely multifactorial in this patient who did have a possible component of pneumonia. Sputum is showing Gram-negative bacilli. Antibiotic will be adjusted to Zosyn while waiting for the culture to finalize. Overall prognosis remains guarded. Continue with supportive care. MMODL / IJN: [id number] /
[2020-01-25] MEDS ORDERED: PIPERACILLIN-TAZOBACTAM 3.375 GM in SODIUM CHLORIDE 0.9% 100 ML IVPB SCH ×2
--- NOTE | 2020-01-27 10:49 | CDI ---
Documentation Clarification Form Date: 01/27/2020 10:36:06 AM From: Olesya Rangel Phone: If you have a question about this query, please contact Chloé Velasco, Assistant Attorney General at [phone] between 8am and 5pm. Admit Date: 01/22/2020 11:00:00 PM Patient Name: Herminia Glynn Visit Number: [id number] Discharge Date: 01/24/2020 11:13:00 PM ATTENTION: The Clinical Documentation Specialists (CDI) and [facility] Coding Staff appreciate your assistance in clarifying documentation. Please respond to the clarification below the line at the bottom and electronically sign. The CDI & [facility] Coding staff will review the response and follow-up if needed. Please note: Queries are made part of the Legal Health Record. If you have any questions, please contact the author of this message via ITS. Dr. Jayro Arreola The patient presented with documented gram negative sepsis and gram negative pneumonia. Sputum culture microbiology is positive for pseudomonas. Please clarify if patient's gram negative sepsis/pneumonia is pseudomonas. History/Risk Factors: gram negative sepsis and pneumonia. Respiratory failure on vent, DVT Clinical Indicators: Lab findings: sputum culture positive for pseudomonas Treatment: Zosyn Consults: In your professional opinion, can you please clarify if gram negative organism is Pseudomonas Not pseudomonas Other, please specify Unable to determine Pseudomonas MTDD
--- NOTE | 2020-02-08 22:40 | P.DS ---
Providers Date of admission: 01/22/20 23:00 Expected date of discharge: 01/24/20 Attending physician: Jayro Arreola MD Consults: 01/22/20 22:57 Consult Physician Routine Consulting Provider: [facility] Consult Reason/Comments: afib with rvr Do you want consulting provider notified?: Already Contacted Consult Physician Stat Consulting Provider: Esteban Mo Consult Reason/Comments: CAP, NIVDRF Do you want consulting provider notified?: Already Contacted 01/23/20 07:00 Consult Physician Routine Consulting Provider: Sarah Shore Consult Reason/Comments: Elevated Liver enzymes Do you want consulting provider notified?: Yes, Notify in am 01/23/20 13:47 Consult Physician Stat Consulting Provider: Prabhjot Guajardo Consult Reason/Comments: Abnormal labs/hematology Do you want consulting provider notified?: Yes 01/23/20 13:49 Consult Physician Stat Consulting Provider: Dom Vasqeuz Consult Reason/Comments: sepsis/abx management Do you want consulting provider notified?: Yes 01/23/20 13:51 Consult Physician Stat Consulting Provider: Izabela Ansari Consult Reason/Comments: Anuria Do you want consulting provider notified?: Yes Primary care physician: Madelyn Mauricio - Discharge Diagnosis(es) (1) Septic shock Status: Acute (2) Atrial fibrillation with RVR Status: Acute (3) CAP (community acquired pneumonia) Status: Acute (4) Elevated liver enzymes Status: Acute (5) Lower leg DVT (deep venous thromboembolism), acute Status: Acute Hospital Course: Herminia Glynn is a 69-year-old female who has a known medical history of hy pertension, dyslipidemia, and COPD. She presented to [facility] Emergency with complaints of progressive dyspnea. Imaging showed consistent with RLL pnemonia. No pulmonary embolism noted on CT. Ultrasound doppler of LE did reveal RLE DVT she also showed atrial fibrillation with RVR and therefore a heparin drip was started. She was found to be hypoxic and tachypneic therefore she was intubated and placed on ventilator support. She also was found to have significantly low TSH and elevated T4. Her PTT was increased and she had nasal bleeding, heparin was held and restarted without bolus per protocol. She remained hypotensive despite IV antibotics, fluid hydration and vasopressor support. Labs consistent with multisystem organ failure. Pt continued to decline and family was contacted, decision was made for her to be DNR. Pt experienced circulatory collapse and passed on 01/23. Plan - Discharge Summary New Discharge Prescriptions: No Action Potassium Gluconate 99 mg PO HS Fluticasone Nasal [place] [Flonase Nasal [place]] 1 spray EA NOSTRIL DAILY PRN PRN Reason: Allergy Symptoms Famotidine 20 mg PO BID PRN PRN Reason: GERDS Loperamide [Imodium] 2 mg PO QID PRN PRN Reason: Diarrhea Ibuprofen 800 mg PO BID PRN PRN Reason: Pain lisinopriL 40 mg PO DAILY Aspirin 325 mg PO HS Albuterol Sulfate [Ventolin HFA] 2 puff INHALATION RT-QID PRN PRN Reason: Shortness Of Breath Umeclidinium [place] [Incruse Ellipta] 1 puff INHALATION RT-DAILY Furosemide [Lasix] 20 mg PO DAILY Celecoxib [CeleBREX] 200 mg PO DAILY Fluticasone/Vilanterol [Breo Ellipta 200-25 Mcg INH] 1 inhalation INHALATION RT-HS Atorvastatin Calcium [Lipitor] 80 mg PO HS amLODIPine [Norvasc] 10 mg PO DAILY Alendronate Sodium [Fosamax] 70 mg PO LOYOLA Ascorbic Acid [Vitamin C] 1,000 mg PO DAILY Discharge Medication List Albuterol Sulfate [Ventolin HFA] 2 puff INHALATION RT-QID PRN 01/22/20 [History] Alendronate Sodium [Fosamax] 70 mg PO LOYOLA 01/22/20 [History] Ascorbic Acid [Vitamin C] 1,000 mg PO DAILY 01/22/20 [History] Aspirin 325 mg PO HS 01/22/20 [History] Atorvastatin Calcium [Lipitor] 80 mg PO HS 01/22/20 [History] Celecoxib [CeleBREX] 200 mg PO DAILY 01/22/20 [History] Famotidine 20 mg PO BID PRN 01/22/20 [History] Fluticasone Nasal [place] [Flonase Nasal [place]] 1 spray EA NOSTRIL DAILY PRN 01/22/20 [History] Fluticasone/Vilanterol [Breo Ellipta 200-25 Mcg INH] 1 inhalation INHALATION RT- HS 01/22/20 [History] Furosemide [Lasix] 20 mg PO DAILY 01/22/20 [History] Ibuprofen 800 mg PO BID PRN 01/22/20 [History] Loperamide [Imodium] 2 mg PO QID PRN 01/22/20 [History] Potassium Gluconate 99 mg PO HS 01/22/20 [History] Umeclidinium [place] [Incruse Ellipta] 1 puff INHALATION RT-DAILY 01/22/20 [History] amLODIPine [Norvasc] 10 mg PO DAILY 01/22/20 [History] lisinopriL 40 mg PO DAILY 01/22/20 [History] Follow up Appointment(s)/Referral(s): Madelyn Mauricio DO [Primary Care Provider] - 1-2 days Discharge Disposition: - Preliminary Cause of Preliminary Cause of : Sepsis
== END 2020-01-24 23:13 | disposition expired | DRG 871 ==
LOC: EC 20:23 → 2SICU 23:00
PROVIDERS: ADMIT Family Medicine; ATTEND Family Medicine
PROC: 5A09357 Assistance with Respiratory Ventilation, Less than 24 Consecutive Hours, Continuous Positive Airway Pressure (ICD-10-PCS; 2020-01-22)
PROC: 5A1945Z Respiratory Ventilation, 24-96 Consecutive Hours (ICD-10-PCS; principal; 2020-01-23)
PROC: 0BH17EZ Insertion of Endotracheal Airway into Trachea, Via Natural or Artificial Opening (ICD-10-PCS; principal; 2020-01-23)
PROC: 4A133B1 Monitoring of Arterial Pressure, Peripheral, Percutaneous Approach (ICD-10-PCS; 2020-01-23)
PROC: 4A133J1 Monitoring of Arterial Pulse, Peripheral, Percutaneous Approach (ICD-10-PCS; 2020-01-23)
PROC: 03HY32Z Insertion of Monitoring Device into Upper Artery, Percutaneous Approach (ICD-10-PCS; 2020-01-23)
PROC: 02H633Z Insertion of Infusion Device into Right Atrium, Percutaneous Approach (ICD-10-PCS; 2020-01-23)
PROC: 3E033XZ Introduction of Vasopressor into Peripheral Vein, Percutaneous Approach (ICD-10-PCS; 2020-01-23)
DX: A41.52 Sepsis due to Pseudomonas (principal); J15.1 Pneumonia due to Pseudomonas; R65.21 Severe sepsis with septic shock; N17.0 Acute kidney failure with tubular necrosis; J96.01 Acute respiratory failure with hypoxia; E05.01 Thyrotoxicosis with diffuse goiter with thyrotoxic crisis or storm; G93.41 Metabolic encephalopathy; K72.01 Acute and subacute hepatic failure with coma; J96.02 Acute respiratory failure with hypercapnia; I50.21 Acute systolic (congestive) heart failure; E87.4 Mixed disorder of acid-base balance; I42.9 Cardiomyopathy, unspecified; I47.1 Supraventricular tachycardia; I82.411 Acute embolism and thrombosis of right femoral vein; J44.0 Chronic obstructive pulmonary disease with (acute) lower respiratory infection; J44.1 Chronic obstructive pulmonary disease with (acute) exacerbation; I82.431 Acute embolism and thrombosis of right popliteal vein; D68.32 Hemorrhagic disorder due to extrinsic circulating anticoagulants; R57.0 Cardiogenic shock; Z66 Do not resuscitate; Z20.828 Contact with and (suspected) exposure to other viral communicable diseases; I82.461 Acute embolism and thrombosis of right calf muscular vein; D69.6 Thrombocytopenia, unspecified; I27.20 Pulmonary hypertension, unspecified; I11.0 Hypertensive heart disease with heart failure; E78.5 Hyperlipidemia, unspecified; K76.1 Chronic passive congestion of liver; I48.0 Paroxysmal atrial fibrillation; R04.0 Epistaxis; Z53.9 Procedure and treatment not carried out, unspecified reason; K75.89 Other specified inflammatory liver diseases; I07.1 Rheumatic tricuspid insufficiency; Z88.8 Allergy status to other drugs, medicaments and biological substances; E83.51 Hypocalcemia; R59.0 Localized enlarged lymph nodes; Z79.82 Long term (current) use of aspirin; Z79.899 Other long term (current) drug therapy; Z79.1 Long term (current) use of non-steroidal anti-inflammatories (NSAID); Z79.83 Long term (current) use of bisphosphonates; Z86.718 Personal history of other venous thrombosis and embolism; Z87.891 Personal history of nicotine dependence; R00.1 Bradycardia, unspecified; T45.515A Adverse effect of anticoagulants, initial encounter
CPT/HCPCS: 36415; 36600; 71045; 71275; 76604; 76770; 80053; 80074; 81001; 82140; 82330; 82570; 82803; 82805; 83605; 83615; 83735; 83880; 84100; 84300; 84439; 84443; 84445; 84484; 84540; 85025; 85379; 85384; 85610; 85730; 86140; 86704; 86706; 87040; 87070; 87077; 87186; 87205; 87340; 93005; 93306; 93970; 94002; 94003; 94640; 94660; 96365; 96366; 96367; 96368; 96375; 96376; 99285